=== PATIENT | female | born 1950 | race Caucasian/White ===

== ENCOUNTER 2016-05-08 08:17 | Inpatient (IN) ==
--- NOTE | 2016-05-07 21:31 | Discharge Summary ---
<Ritu Lino Mason - Last Filed: 05/07/16 21:25> Date of Encounter: 05/07/16 - Discharge Diagnosis (1) Arthritis of knee, right Priority: Primary Status: Acute (2) Obesity Priority: Secondary Status: Chronic Qualifiers: Obesity type: unspecified obesity type Obesity severity: unspecified obesity severity Qualified Code(s): E66.9 - Obesity, unspecified (3) Diabetes Priority: Secondary Status: Chronic Qualifiers: Diabetes mellitus type: type 2 Diabetes mellitus complication status: with unspecified complications Diabetes mellitus intermediate frame tender insulin use: unspecified long-term insulin use status Qualified Code(s): E11.8 - Type 2 diabetes mellitus with unspecified complications (4) Hypertension Priority: Secondary Status: Chronic Qualifiers: Hypertension type: essential hypertension Qualified Code(s): I10 - Essential (primary) hypertension (5) Renal insufficiency Priority: Secondary Status: Chronic - Discharge Medications Home Medications: Gabapentin [Neurontin] 600 mg PO HS #0 06/28/15 [History] Hydrochlorothiazide 25 mg PO DAILY #0 06/28/15 [History] Metformin [Glucophage] 500 mg PO BIDWM #0 06/28/15 [History] Furosemide [Lasix] 20 mg PO Q48H #0 10/09/15 [History] Omeprazole [PriLOSEC] 40 mg PO DAILY #30 capsule. 10/09/15 [Rx] Aspirin Enteric Coated [Aspirin EC] 325 mg PO DAILY #21 tablet. 05/07/16 [Rx] OxyCODONE Immed Rel [Roxicodone 5 MG] 5 - 10 mg PO Q6HR PRN #40 tablet 05/07/16 [Rx] Linagliptin [Tradjenta] 5 mg PO DAILY 05/08/16 [History] Allergies/Adverse Reactions: Allergies Penicillins [PCN] Allergy (Verified 05/08/16 09:52) Hives Primary care physician: Noel Gonsalez - Patient Status Disposition: Home, Self-Care Condition: Good - Discharge Instructions Follow Up With: Noel Gonsalez MD [Primary Care Provider] - - Hospital Course Hospital course: Ms. Morales is a 65 year old female - Time Spent with Patient Total time spent providing and/or coordinating discharge services: <Shahram Modi - Last Filed: 05/09/16 06:44> Date of Encounter: 05/09/16 Time of Encounter: 06:42 - Discharge Diagnosis (1) Arthritis of knee, right Priority: Primary Status: Acute (2) Obesity Priority: Secondary Status: Chronic Qualifiers: Obesity type: unspecified obesity type Obesity severity: unspecified obesity severity Qualified Code(s): E66.9 - Obesity, unspecified (3) Diabetes Priority: Secondary Status: Chronic Qualifiers: Diabetes mellitus type: type 2 Diabetes mellitus complication status: with unspecified complications Diabetes mellitus intermediate frame tender insulin use: unspecified intermediate frame tender insulin use status Qualified Code(s): E11.8 - Type 2 diabetes mellitus with unspecified complications (4) Hypertension Priority: Secondary Status: Chronic Qualifiers: Hypertension type: essential hypertension Qualified Code(s): I10 - Essential (primary) hypertension (5) Renal insufficiency Priority: Secondary Status: Chronic (6) Acute blood loss anemia Priority: Primary Status: Acute Primary care physician: Noel Gonsalez - Patient Status Functional capacity at discharge: uses cane/walker Overall status at discharge: patient is progressing back to baseline - Hospital Course Hospital course: Ms. Morales is a 65 year old female Patient with a hematocrit 26.8 postop check hematocrit for discharge otherwise The patient had an uneventful postoperative course. They received antibiotics and physical therapy and were discharged in stable condition. There will follow -up in the office in 2 weeks. Aspirin DVT prophylaxis - Time Spent with Patient Total time spent providing and/or coordinating discharge services:
[2016-05-08] MEDS ORDERED: Clindamycin 900 MG/50 ML 900 MG/50 ML IV.SOLN IVPB ONE (08:31)
[2016-05-08] MEDS ORDERED: Ringers Solution, Lactated 1,000 ML IVC SCH ×2 (08:45→13:44)
--- NOTE | 2016-05-08 09:15 | History & Physical Report ---
Date of Encounter: 05/08/16 Time of Encounter: 09:15 24 Hour HP Update - Instructions Instructions: If the History and Physical is less than 30 days old and was completed prior to A.M. admission and or procedure and has NOT been updated on calendar day of procedure please complete this update prior to performing procedure. - Update Patient reports changes in Medical Condition: No Changes in assessment/condition: No Changes in Medication: No Preop tests/diagnostics Reviewed: Yes Surgery Remains Indicated: Yes Consent for Planned Operative Procedure(s) Verified: Yes - Pre-Operative Checklist Preoperative Checklist Indicated: No Prophylactic Antibiotic Ordered: Yes Is VTE Prophylaxis Indicated?: Yes
--- NOTE | 2016-05-08 09:45 | Anesthesia Evaluation PreOp ---
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 10/09/15 [Rx] Cyclobenzaprine [Flexeril] 10 mg PO TID PRN #9 tablet 02/19/16 [Rx] Naproxen [Naprosyn] 500 mg PO BID PRN #15 tablet 02/19/16 [Rx] Aspirin Enteric Coated [Aspirin EC] 325 mg PO DAILY #21 tablet. 05/07/16 [Rx] OxyCODONE Immed Rel [Roxicodone 5 MG] 5 - 10 mg PO Q6HR PRN #40 tablet 05/07/16 [Rx] Allergies Penicillins [PCN] Allergy (Verified 03/07/16 17:04) Hives - Meds/Allergy Pre-op Review Medications Reviewed: Yes Allergies Reviewed: Yes Beta Blockers on Current Med List: No Anesthesia Results - Labs Laboratory Tests 04/24/16 04/24/16 05/06/16 13:32 13:32 21:08 WBC 9.6 Hgb 11.1 L Hct 33.4 L Plt Count 376 PT 11.3 INR 1.0 APTT 31.9 Sodium Potassium Chloride Carbon Dioxide BUN Creatinine Est GFR ( Amer) Est GFR (Non-Af Amer) BUN/Creatinine Ratio Glucose Est Mean Plasma Glucose 180 Hemoglobin A1c 7.9 H Calcium 05/06/16 21:08 WBC Hgb Hct Plt Count PT INR APTT Sodium 141 Potassium 3.8 Chloride 103 Carbon Dioxide 24 BUN 17 Creatinine 1.14 H Est GFR ( Amer) 58 L Est GFR (Non-Af Amer) 48 L BUN/Creatinine Ratio 15 Glucose 216 H Est Mean Plasma Glucose Hemoglobin A1c Calcium 9.8 - Imaging EKG: report reviewed, image reviewed (SR) Anesthesia Exam Last Vital Signs Temp 98.9 F 05/08/16 08:43 Pulse 90 05/08/16 08:43 Resp 18 05/08/16 08:43 BP 178/79 05/08/16 08:43 Pulse Ox 99 05/08/16 08:43 Weight: 81 kg NPO (# of Hours): >> 8 hrs - HEENT Pupil (Motor): Pupils equal, EOMI Mallampati: III Teeth: Edentulous Oral Opening: Greater than 3 - PEST CONTR[employer] SERVICE SALES AGENT LOC: Oriented - Cardiac Rhythm: Regular Murmur: Systolic (low grade ALISA) - Pulmonary Breath Sounds: bilateral Clear Respiratory Effort: Symmetrical Anesthesia Assess/Plan ASA Score: 3 Modified Keny Scale for Level of Consciousness: Anixous, agitated or restless Anesthetic Plan: General, Regional Monitoring Plan: Standard Monitors Recovery Plan: PACU
[2016-05-08] MEDS ORDERED: *HR* Rocuronium Bromide 50 MG/5 ML VIAL ONE (09:46)
[2016-05-08] MEDS ORDERED: Lidocaine -MPF 2% 2 ML VIAL ONE (09:46)
[2016-05-08] MEDS ORDERED: *HR* FentaNYL (PF) 100 MCG/2 ML VIAL ONE (09:46)
[2016-05-08] MEDS ORDERED: Ketorolac 30 MG/ML VIAL ONE (09:46)
[2016-05-08] MEDS ORDERED: *HR* Midazolam HCl 2 MG/2 ML VIAL ONE (09:46)
[2016-05-08] MEDS ORDERED: *HR* Propofol 200 MG/20 ML VIAL IVP ONE (09:46)
[2016-05-08] MEDS ORDERED: Ondansetron 4 MG/2 ML VIAL ONE (09:46)
[2016-05-08] MEDS ORDERED: ROPIVACAINE HCL/PF 0.5% 30 ML VIAL ONE (10:37)
[2016-05-08] MEDS ORDERED: Bupivacaine/Clonidine Syringe 1 EACH SYRINGE ONE (10:38)
[2016-05-08] MEDS ORDERED: Ondansetron 4 MG/2 ML VIAL IVP PRN (11:27)
[2016-05-08] MEDS ORDERED: Albuterol 2.5 MG/3 ML NEBULIZER IH PRN (11:27)
--- NOTE | 2016-05-08 11:34 | Anesthesia Procedures ---
Date of Encounter: 05/08/16 Time of Encounter: 10:50 Procedures: Anesthesia - Nerve Block Procedure Date: 05/08/16 Time: 10:50 Allergies/Adv Reactions: pcn Pre-op Diagnosis: Right Knee Arthritis Surgical Procedure: Right Knee Arthroplasty Checklist: Correct Patient Identifier, Correct procedure, History checked Correct side: Right Blood Thinner: No Monitor Applied: EKG, BP, Pulse Oximetry Supplemental Oxygen via Nasal Cannula (L/min): 2 Sedation: Versed (mg): 2 Sedation: Fentanyl (mcg): 100 Indication: Post Op Analgesia Pre-op Neuro Deficits: No Block Type: Femoral, Other (ipacks block performedetic ]] using ultrasound and bupivicaine with clonodine. visual spread of Local anest) Catheter placed: No Sterile Technique: No Ultrasound used: Yes Anatomy identified: Yes Visual spread of Local: Yes Neuro Stimulation: Yes Nerve Stimulator Range: 0.2 - 0.4 mA Blood on Needle Aspiration: No Smooth Injection of Local: Yes Pain with Injection of Local: No Prep: Chlorhexadine Needle: 22 x 50 mm Stimuplex, 21 x 100 mm Stimuplex (for ipacks block) Local: Ropivacaine, Other (Decadron 10 mg for fem nerve block only) Volume (cc): 30 ml naropin used for FN Number of Attempts: 1 (each) Complications: None/effective block Vitals: vss
--- NOTE | 2016-05-08 11:57 | Orthopedic Operative Note ---
Date of procedure: 05/08/16 Pre-op diagnosis: Right knee arthritis Post-op diagnosis: same Procedure: Procedure: Right Total knee replacement Estimated blood loss: 200 cc Hardware: Arthrex Femur: 4 Tibia: 3, 5 mm lateral augment PS insert: 14 Patella: 34 Exam Under anesthesia: Varus alignment loss of full extension 10 degrees Procedural Notes: Grade 4 arthritic changes in all 3 compartments Operative procedure: The patient was brought to the operating room and placed on the operating room table. After general anesthesia was administered the operative knee was examined. Findings were noted in the exam under anesthesia. The operative extremity was prepped and draped in sterile surgical fashion. The patient received IV antibiotics prior to skin incision. A standard midline incision was made centered over the patella. The incision was made through the skin and subcutaneous tissue. A medial parapatellar tendon approach was performed. Care was taken to preserve tissue along the medial aspect of the patella. And to protect the patella tendon. The deep MCL was released off the medial tibia. The infra patella fat pad was excised. Knee was brought into flexion. Patient noted to have grade 4 arthritic changes all 3 compartments The entry hole was made for the intramedullary femoral guide. The guide was seated in 6 degrees of valgus. Anterior cut was made followed by the distal cut. The ACL the PCL the medial and the lateral menisci were excised. The tibia was subluxed forward. The entry hole was made for the intramedullary tibial guide. Guide was seated to resect 2 mm off the more abnormal side. The knee was brought into flexion the distal femur was sized to a 4. The femoral guide was seated, the anterior cut was made followed by the posterior condylar cut, followed by the chamfer cuts. The finishing guide was seated the box cut was made and the lug holes were drilled. The tibia was sized to a 3, the tibial tray was seated and prepared with the large drill followed by the fin cutter. Trial reduction revealed full extension no varus valgus instability with the appropriate 14 PS Latricia and a 5 mm lateral augment on the tibia. The patella was everted and cut was made at the level of the insertion of the quadriceps and patella tendon. The patella was sized to a 34 the guide was seated and the lug holes are drilled. Trial reduction revealed excellent patella tracking. All trial components were removed all bony surfaces were irrigated. The tibia was cemented first followed by the femur. The 14 PS Latricia was seated and the knee was brought into full extension. The patella was cemented and held in place with the patellar holding clamp. After the cement had hardened, the knee sat for 2 minutes with a Betadine saline solution. The knee was then irrigated out with 2 L of pulse irrigation. The extensor mechanism was closed with #2 FiberWire suture and #2 PDS suture. The subcutaneous tissue was then irrigated and closed deep with #1 PDS suture superficially with 0 PDS suture and skin was closed with skin jayme. The patient was then placed in a sterile dressing and a postoperative brace extubated and transferred to recovery room in stable condition. Anesthesia: ARMAND Surgeon: Shahram Modi Critical Care Registered Nurse: Ritu Lino Condition: stable Disposition: PACU
[2016-05-08] MEDS: *HR* HYDROmorphone (PF) 1 MG/ML SYRINGE IVP PRN ×2 (12:29→12:36)
--- NOTE | 2016-05-08 13:08 | Anesthesia Evaluation Post Op ---
Date of Encounter: 05/08/16 Time of Encounter: 13:07 - Vital Signs Vital Signs: Vital Signs/O2 Sat, Most Current Temp Pulse Resp BP Pulse Ox 98 F 71 16 132/65 99 05/08/16 12:53 05/08/16 12:53 05/08/16 12:53 05/08/16 12:53 05/08/16 12:53 - Lungs Lungs: Clear Ascult./Percussion - Airway Airway: Non-obstructed - Cardiovascular Regular Rate - Mental Status Mental Status: Asleep with brisk response to light stimulation - Pain Pain Scale: 6 Pain Scale used: Numeric (1 - 10) - Nausea Vomiting Nausea Vomiting: Not Present - Hydration Hydration: NPO, Has not voided - Discharge PostOp Status: Transfer Patient to floor
[2016-05-08 13:26] LABS: Hematocrit 26.8 % (35.3-44.9)
[2016-05-08 13:31] LABS: Hemoglobin 8.8 g/dL (11.5-15.4)
[2016-05-08] MEDS ORDERED: MOM Conc 10 ML UD.LIQ PO PRN (13:44)
[2016-05-08] MEDS ORDERED: Acetaminophen 325 MG TABLET PO PRN (13:44)
[2016-05-08] MEDS ORDERED: Temazepam 15 MG CAPSULE PO PRN (13:44)
[2016-05-08] MEDS ORDERED: *HR* OxyCODONE Immed Rel 5 MG TABLET PO PRN (13:44)
[2016-05-08] MEDS ORDERED: Sennosides 8.6 MG TABLET PO PRN (13:44)
[2016-05-08] MEDS ORDERED: *HR* Dextrose 50 % in Water (Syg) 50 ML SYRINGE IVP PRN (13:44)
[2016-05-08] MEDS ORDERED: D5% in Water 1,000 ML IV PRN (13:44)
[2016-05-08] MEDS ORDERED: Dextrose Gel 15 GM PO PRN ×2 (13:44)
[2016-05-08] MEDS ORDERED: Naloxone 0.4 MG/ML INJ IVP PRN (13:44)
[2016-05-08] MEDS: Ondansetron 4 MG/2 ML VIAL IVP PRN (13:54)
[2016-05-08] MEDS: Insulin LISPRO 300 UNITS/3 ML VIAL SQ SCH ×2 (14:05→17:29)
[2016-05-08] MEDS: Furosemide 20 MG TABLET PO SCH (16:19)
[2016-05-08] MEDS: Clindamycin 900 MG/50 ML 900 MG/50 ML IV.SOLN IVPB SCH (16:19)
[2016-05-08] MEDS: *HR* Metformin 500 MG TABLET PO SCH (17:29)
[2016-05-08] MEDS: *HR* Enoxaparin 30 MG/0.3 ML SYRINGE SQ SCH (17:30)
[2016-05-08] MEDS ORDERED: *HR* Enoxaparin 30 MG/0.3 ML SYRINGE SQ SCH (18:00)
[2016-05-08] MEDS: *HR* OxyCODONE Immed Rel 5 MG TABLET PO PRN (19:38)
[2016-05-08] MEDS: Gabapentin 300 MG CAPSULE PO SCH (21:19)
[2016-05-09] MEDS: *HR* OxyCODONE Immed Rel 5 MG TABLET PO PRN ×5 (01:08→22:15)
[2016-05-09] MEDS: Clindamycin 900 MG/50 ML 900 MG/50 ML IV.SOLN IVPB SCH (01:09)
[2016-05-09] MEDS: *HR* Enoxaparin 30 MG/0.3 ML SYRINGE SQ SCH ×2 (05:17→16:48)
[2016-05-09 07:11] LABS: Hematocrit 23.4 % (35.3-44.9); Hemoglobin 7.9 g/dL (11.5-15.4)
[2016-05-09 07:14] LABS: BUN/Creatinine Ratio 22 (6-26); Blood Urea Nitrogen 19 mg/dL (7-20); Calcium 8.6 mg/dL (8.6-10.8); Carbon Dioxide 24 mEq/L (19-29); Chloride 100 mEq/L (98-109); Glucose 242 mg/dL (70-99); Osmolality,Calculated 290 (280-300); Potassium 3.5 mEq/L (3.5-4.5); Sodium 135 mEq/L (136-145); eGFR For African Americans > 60 (> 60); eGFR For Non-African Americans > 60 (> 60)
[2016-05-09] MEDS: *HR* Metformin 500 MG TABLET PO SCH ×2 (09:36→16:16)
[2016-05-09] MEDS: hydroCHLOROthiazide 25 MG TABLET PO SCH (09:36)
[2016-05-09] MEDS: Ondansetron 4 MG/2 ML VIAL IVP PRN (09:37)
[2016-05-09] MEDS: Insulin LISPRO 300 UNITS/3 ML VIAL SQ SCH ×3 (09:37→16:17)
[2016-05-09] MEDS: (Linagliptin [Tradjenta] 5 MG) PO SCH (09:40)
[2016-05-09] MEDS ORDERED: Furosemide 20 MG/2 ML VIAL IVP ONE ×2 (10:52→20:52)
[2016-05-09] MEDS: 0.9 % Sodium Chloride 250 ML IVC PRN ×2 (14:45→17:44)
[2016-05-09] MEDS: Gabapentin 300 MG CAPSULE PO SCH (20:18)
[2016-05-10] MEDS: *HR* OxyCODONE Immed Rel 5 MG TABLET PO PRN ×3 (02:34→16:12)
[2016-05-10] MEDS: Ondansetron 4 MG/2 ML VIAL IVP PRN ×2 (02:59→10:55)
[2016-05-10 06:04] LABS: Hematocrit 25.2 % (35.3-44.9); Hemoglobin 8.4 g/dL (11.5-15.4)
[2016-05-10 06:16] LABS: BUN/Creatinine Ratio 22 (6-26); Blood Urea Nitrogen 18 mg/dL (7-20); Calcium 8.3 mg/dL (8.6-10.8); Carbon Dioxide 26 mEq/L (19-29); Chloride 97 mEq/L (98-109); Glucose 190 mg/dL (70-99); Osmolality,Calculated 283 (280-300); Potassium 3.1 mEq/L (3.5-4.5); Sodium 133 mEq/L (136-145); eGFR For African Americans > 60 (> 60); eGFR For Non-African Americans > 60 (> 60)
[2016-05-10] MEDS ORDERED: Furosemide 20 MG/2 ML VIAL IVP ONE (06:34)
[2016-05-10] MEDS: *HR* Metformin 500 MG TABLET PO SCH ×2 (07:47→17:22)
[2016-05-10] MEDS: hydroCHLOROthiazide 25 MG TABLET PO SCH (07:48)
[2016-05-10] MEDS: Insulin LISPRO 300 UNITS/3 ML VIAL SQ SCH ×3 (07:48→17:21)
[2016-05-10] MEDS: (Linagliptin [Tradjenta] 5 MG) PO SCH (07:51)
--- NOTE | 2016-05-10 08:33 | Orthopedics Progress Note ---
Date of Encounter: 05/10/16 Time of Encounter: 08:33 - Assessment and Plan (1) Arthritis of knee, right Current Visit: Yes Status: Acute (2) Obesity Current Visit: Yes Status: Chronic Qualifiers: Obesity type: unspecified obesity type Obesity severity: unspecified obesity severity Qualified Code(s): E66.9 - Obesity, unspecified (3) Diabetes Current Visit: No Status: Chronic Qualifiers: Diabetes mellitus type: type 2 Diabetes mellitus complication status: with unspecified complications Diabetes mellitus termination clerk insulin use: unspecified mcc insulin use status Qualified Code(s): E11.8 - Type 2 diabetes mellitus with unspecified complications (4) Hypertension Current Visit: No Status: Chronic Qualifiers: Hypertension type: essential hypertension Qualified Code(s): I10 - Essential (primary) hypertension (5) Renal insufficiency Current Visit: No Status: Chronic (6) Acute blood loss anemia Current Visit: Yes Status: Acute Subjective Interval history: Patient was seen this morning doing well without complaints. Afebrile vital signs stable. Operative extremity: Neurovascularly intact Dressing clean dry and intact Calves nontender Assessment and plan: Continue with postoperative care Patient seen yesterday with acute blood loss anemia postop hematocrit 25 today will give one more unit. Objective Vital signs: Vital Signs Temp Pulse Resp BP Pulse Ox 05/10/16 06:49 98.2 F 78 16 126/61 93 L 05/10/16 04:00 99.0 F 80 17 121/61 92 L 05/10/16 00:00 98.8 F 92 16 145/75 92 L 05/09/16 20:24 97.7 F 82 16 138/72 99 05/09/16 18:03 97.6 F 86 22 137/72 98 05/09/16 17:48 97.8 F 80 22 123/61 97 05/09/16 17:21 97.8 F 89 24 110/56 99 05/09/16 15:00 98.0 F 77 20 121/59 98 05/09/16 14:45 97.9 F 75 22 125/52 99 05/09/16 14:39 98.0 F 87 18 122/58 99 05/09/16 10:45 97.6 F 70 18 121/57 94 L Intake and Output 05/09/16 05/10/16 05/10/16 23:59 07:59 15:59 Intake Total 870 / 870 525 / 525 Output Total 350 / 350 625 / 625 300 / 300 Balance 520 / 520 -100 / -100 -300 / -300 Intake: IV Fluids 50 / 50 0.9 % Sodium Chloride 250 50 / 50 ML @ 25 mls/hr IVC .Q10H PRN Rx#:[id number] Oral 250 / 250 525 / 525 Blood Product 570 / 570 Rbcs Leuko Poor As-1 270 / 270 Unit [id number] Rbcs Leuko Poor As-1 300 / 300 Unit [id number] Output: Urine 350 / 350 625 / 625 300 / 300 Other: Blood Glucose* 197 183 - Labs CBC & BMP: 05/10/16 05:51 05/10/16 05:51 Labs: Abnormal lab results Hgb 8.4 g/dL (11.5-15.4) L 05/10/16 05:51 Hct 25.2 % (35.3-44.9) L 05/10/16 05:51 Sodium 133 mEq/L (136-145) L 05/10/16 05:51 Potassium 3.1 mEq/L (3.5-4.5) L 05/10/16 05:51 Chloride 97 mEq/L (98-109) L 05/10/16 05:51 Glucose 190 mg/dL (70-99) H 05/10/16 05:51 POC Glucose 213 (58-89) H 05/08/16 12:26 Calcium 8.3 mg/dL (8.6-10.8) L 05/10/16 05:51 - VTE Documentation of Mechanical Device: Venous foot pump, device Consult Discharge Plan - Plan Referrals: Shahram Modi MD [Partnered Physician] - 06/06/16 7:35 am Ritu Lino, PAC [Physician Display Department Manager] - 05/18/16 9:15 am Noel Gonsalez MD [Primary Care Provider] -
[2016-05-10] MEDS ORDERED: 0.9 % Sodium Chloride 250 ML ONE (10:05)
--- NOTE | 2016-05-10 10:26 | Orthopedics Progress Note ---
Date of Encounter: 05/09/16 Time of Encounter: 06:00 - Assessment and Plan (1) Arthritis of knee, right Current Visit: Yes Status: Acute (2) Obesity Current Visit: Yes Status: Chronic Qualifiers: Obesity type: unspecified obesity type Obesity severity: unspecified obesity severity Qualified Code(s): E66.9 - Obesity, unspecified (3) Diabetes Current Visit: No Status: Chronic Qualifiers: Diabetes mellitus type: type 2 Diabetes mellitus complication status: with unspecified complications Diabetes mellitus intermodal dispatcher insulin use: unspecified alf insulin use status Qualified Code(s): E11.8 - Type 2 diabetes mellitus with unspecified complications (4) Hypertension Current Visit: No Status: Chronic Qualifiers: Hypertension type: essential hypertension Qualified Code(s): I10 - Essential (primary) hypertension (5) Renal insufficiency Current Visit: No Status: Chronic (6) Acute blood loss anemia Current Visit: Yes Status: Acute Subjective Interval history: Patient was seen this morning doing well without complaints. Afebrile vital signs stable. Operative extremity: Neurovascularly intact Dressing clean dry and intact Calves nontender Assessment and plan: Continue with postoperative care Hematocrit 23 transfuse 2 units packed red blood cells for acute blood loss anemia Objective Vital signs: Vital Signs Temp Pulse Resp BP Pulse Ox 05/10/16 06:49 98.2 F 78 16 126/61 93 L 05/10/16 04:00 99.0 F 80 17 121/61 92 L 05/10/16 00:00 98.8 F 92 16 145/75 92 L 05/09/16 20:24 97.7 F 82 16 138/72 99 05/09/16 18:03 97.6 F 86 22 137/72 98 05/09/16 17:48 97.8 F 80 22 123/61 97 05/09/16 17:21 97.8 F 89 24 110/56 99 05/09/16 15:00 98.0 F 77 20 121/59 98 05/09/16 14:45 97.9 F 75 22 125/52 99 05/09/16 14:39 98.0 F 87 18 122/58 99 05/09/16 10:45 97.6 F 70 18 121/57 94 L Intake and Output 05/09/16 05/10/16 05/10/16 23:59 07:59 15:59 Intake Total 870 / 870 525 / 525 100 / 100 Output Total 350 / 350 625 / 625 300 / 300 Balance 520 / 520 -100 / -100 -200 / -200 Intake: IV Fluids 50 / 50 0.9 % Sodium Chloride 250 50 / 50 ML @ 25 mls/hr IVC .Q10H PRN Rx#:[id number] Oral 250 / 250 525 / 525 100 / 100 Blood Product 570 / 570 Rbcs Leuko Poor As-1 270 / 270 Unit [id number] Rbcs Leuko Poor As-1 300 / 300 Unit [id number] Output: Urine 350 / 350 625 / 625 300 / 300 Other: Meal Breakfast Percent of Meal Consumed 50% Blood Glucose* 197 183 - Labs CBC & BMP: 05/10/16 05:51 05/10/16 05:51 Labs: Abnormal lab results Hgb 8.4 g/dL (11.5-15.4) L 05/10/16 05:51 Hct 25.2 % (35.3-44.9) L 05/10/16 05:51 Sodium 133 mEq/L (136-145) L 05/10/16 05:51 Potassium 3.1 mEq/L (3.5-4.5) L 05/10/16 05:51 Chloride 97 mEq/L (98-109) L 05/10/16 05:51 Glucose 190 mg/dL (70-99) H 05/10/16 05:51 POC Glucose 213 (58-89) H 05/08/16 12:26 Calcium 8.3 mg/dL (8.6-10.8) L 05/10/16 05:51 - VTE Documentation of Mechanical Device: Venous foot pump, device Consult Discharge Plan - Plan Referrals: Shahram Modi MD [Partnered Physician] - 06/06/16 7:35 am Ritu Lino, PAC [Physician Insole Rounder] - 05/18/16 9:15 am Noel Gonsalez MD [Primary Care Provider] -
[2016-05-10] MEDS: *HR* HYDROmorphone (PF) 1 MG/ML SYRINGE IVP PRN ×2 (10:36→19:20)
[2016-05-10] MEDS: Aspirin Enteric Coated 325 MG Tablet PO SCH ×2 (14:53→21:48)
[2016-05-10] MEDS: Furosemide 20 MG TABLET PO SCH (14:53)
[2016-05-10] MEDS: Gabapentin 300 MG CAPSULE PO SCH (21:48)
[2016-05-11] MEDS: *HR* Enoxaparin 30 MG/0.3 ML SYRINGE SQ SCH (06:05)
[2016-05-11] MEDS: hydroCHLOROthiazide 25 MG TABLET PO SCH (07:34)
[2016-05-11] MEDS: Insulin LISPRO 300 UNITS/3 ML VIAL SQ SCH ×2 (07:34→12:38)
[2016-05-11] MEDS: *HR* Metformin 500 MG TABLET PO SCH (07:34)
[2016-05-11] MEDS: (Linagliptin [Tradjenta] 5 MG) PO SCH (07:35)
--- NOTE | 2016-05-11 08:08 | Orthopedics Progress Note ---
Date of Encounter: 05/11/16 Time of Encounter: 08:08 - Assessment and Plan (1) Arthritis of knee, right Current Visit: Yes Status: Acute (2) Obesity Current Visit: Yes Status: Chronic Qualifiers: Obesity type: unspecified obesity type Obesity severity: unspecified obesity severity Qualified Code(s): E66.9 - Obesity, unspecified (3) Diabetes Current Visit: No Status: Chronic Qualifiers: Diabetes mellitus type: type 2 Diabetes mellitus complication status: with unspecified complications Diabetes mellitus terminal carman insulin use: unspecified half-way insulin use status Qualified Code(s): E11.8 - Type 2 diabetes mellitus with unspecified complications (4) Hypertension Current Visit: No Status: Chronic Qualifiers: Hypertension type: essential hypertension Qualified Code(s): I10 - Essential (primary) hypertension (5) Renal insufficiency Current Visit: No Status: Chronic (6) Acute blood loss anemia Current Visit: Yes Status: Acute Subjective Interval history: Patient was seen this morning doing well without complaints. Afebrile vital signs stable. Operative extremity: Neurovascularly intact Dressing clean dry and intact Calves nontender Assessment and plan: Continue with postoperative care dc today Objective Vital signs: Vital Signs Temp Pulse Resp BP Pulse Ox 05/11/16 07:46 96 05/11/16 07:00 99.4 F 83 16 126/68 95 05/11/16 06:55 98.9 F 87 18 147/68 96 05/11/16 00:00 99.5 F 97 16 152/71 94 L 05/10/16 20:00 99.2 F 83 17 126/66 96 05/10/16 14:50 98.5 F 92 16 149/71 93 L 05/10/16 13:40 98.6 F 90 17 135/69 95 05/10/16 11:09 98.6 F 79 15 125/66 97 05/10/16 10:54 98.1 F 81 17 136/67 95 05/10/16 10:33 98.7 F 85 18 130/69 93 L Intake and Output 05/10/16 05/11/16 05/11/16 23:59 07:59 15:59 Intake Total 250 / 250 200 / 200 Output Total 225 / 225 300 / 300 Balance 25 / 25 -100 / -100 Intake: Oral 250 / 250 200 / 200 Output: Urine 225 / 225 300 / 300 Other: Blood Glucose* 159 177 - Labs CBC & BMP: 05/10/16 05:51 05/10/16 05:51 Labs: Abnormal lab results Hgb 8.4 g/dL (11.5-15.4) L 05/10/16 05:51 Hct 25.2 % (35.3-44.9) L 05/10/16 05:51 Sodium 133 mEq/L (136-145) L 05/10/16 05:51 Potassium 3.1 mEq/L (3.5-4.5) L 05/10/16 05:51 Chloride 97 mEq/L (98-109) L 05/10/16 05:51 Glucose 190 mg/dL (70-99) H 05/10/16 05:51 POC Glucose 213 (58-89) H 05/08/16 12:26 Calcium 8.3 mg/dL (8.6-10.8) L 05/10/16 05:51 - VTE Documentation of Mechanical Device: Venous foot pump, device Consult Discharge Plan - Plan Referrals: Shahram Modi MD [Partnered Physician] - 06/06/16 7:35 am Ritu Lino PAC [Physician Retail Manager In Training] - 05/18/16 9:15 am Noel Gonsalez MD [Primary Care Provider] -
[2016-05-11 10:54] LABS: Hematocrit 28.9 % (35.3-44.9); Hemoglobin 9.8 g/dL (11.5-15.4)
[2016-05-11] MEDS: *HR* OxyCODONE Immed Rel 5 MG TABLET PO PRN (11:10)
[2016-05-11 11:48] VITALS: BP 132/59
== END 2016-05-11 13:05 | disposition home or self-care (01) | DRG 470 ==
LOC: SAMDAY 08:17 → 3NENU 13:41
PROVIDERS: ADMIT Orthopaedic Surgery; ATTEND Orthopaedic Surgery

== ENCOUNTER 2021-08-31 10:55 | Inpatient (IN) ==
[2021-08-31 13:25] LABS: Basophils # 0.1 K/mcL (0.0-0.2); Basophils % 0.7 %; Eosinophils # 0.8 K/mcL (0.0-0.6); Eosinophils % 6.8 %; Hematocrit 27.4 % (35.3-44.9); Hemoglobin 8.4 g/dL (11.5-15.4); Immature Granulocytes % 0.4 % (0-4); Lymphocytes # 3.1 K/mcL (0.6-4.6); Mean Corpuscular HGB Conc 30.7 g/dL (31.6-35.5); Mean Corpuscular Hemoglobin 28.2 pg (28.0-33.3); Mean Corpuscular Volume 91.9 fL (83.0-100.0); Mean Platelet Volume 8.7 fL (9.4-12.4); Monocytes # 0.8 K/mcL (0.0-1.3); Monocytes % 7.1 %; Neutrophils # 6.2 K/mcL (1.6-8.9); Platelet Count 464 K/mcL (140-400); Red Blood Count 2.98 M/mcL (3.82-4.97); Red Cell Distribution Width 15.9 % (11.5-14.5)
[2021-08-31 13:41] LABS: BUN/Creatinine Ratio 10 (6-26); Blood Urea Nitrogen 13 mg/dL (8-23); Carbon Dioxide 27 mEq/L (23-29); Chloride 100 mEq/L (98-107); Glucose 68 mg/dL (70-105); Osmolality,Calculated 282 (280-300); Potassium 3.1 mEq/L (3.5-5.1); Sodium 137 mEq/L (136-145); eGFR For African Americans 50 (> 60); eGFR For Non-African Americans 41 (> 60)
[2021-08-31] MEDS ORDERED: Potassium Effervescent 25 MEQ TABLET.EFF PO ONE (13:46)
[2021-08-31] MEDS ORDERED: Furosemide 20 MG/2 ML VIAL IVP ONE ×2 (14:38→17:13)
[2021-08-31] MEDS ORDERED: Ondansetron ODT 4 MG TAB.RAPDIS SL PRN (15:41)
[2021-08-31] MEDS ORDERED: Naloxone 0.4 MG/ML INJ IVP PRN (15:41)
[2021-08-31] MEDS ORDERED: Perflutren Lipid Microsphere 1.3 ML in 0.9 % Sodium Chloride 8.7 ML IVP PRN (15:49)
[2021-08-31] MEDS ORDERED: D5% in Water 1,000 ML IVC PRN (15:55)
[2021-08-31] MEDS ORDERED: *HR* Dextrose 50 % in Water (Syg) 50 ML SYRINGE IVP PRN (15:55)
[2021-08-31] MEDS ORDERED: Dextrose Gel 15 GM/37.5 ML TUBE PO PRN ×2 (15:55)
[2021-08-31 17:34] LABS: Troponin I < 0.03 ng/mL (< 0.04)
[2021-08-31] MEDS ORDERED: Iopamidol - 370 500 ML MLS IVP ONE (17:58)
[2021-08-31] MEDS: Insulin LISPRO 300 UNITS/3 ML VIAL SUBQ SCH ×2 (19:53)
[2021-08-31] MEDS: Furosemide 20 MG/2 ML VIAL IVP SCH (20:35)
[2021-09-01] MEDS: Gabapentin 300 MG CAPSULE PO SCH ×2 (00:04→21:27)
[2021-09-01 00:59] LABS: Influenza A PCR Negative (Negative); Influenza B PCR Negative (Negative); Resp. Syncytial Virus PCR Negative (Negative)
[2021-09-01 01:02] LABS: SARS-CoV-2 by PCR (In House) Negative (Negative)
[2021-09-01] MEDS: Acetaminophen 325 MG TABLET PO PRN (03:18)
[2021-09-01] MEDS ORDERED: *HR* OxyCODONE Immed Rel 5 MG TABLET PO ONE (04:56)
[2021-09-01 05:41] LABS: Basophils # 0.1 K/mcL (0.0-0.2); Basophils % 0.8 %; Eosinophils # 0.3 K/mcL (0.0-0.6); Eosinophils % 3.6 %; Hematocrit 25.6 % (35.3-44.9); Immature Granulocytes % 0.3 % (0-4); Lymphocytes # 1.9 K/mcL (0.6-4.6); Lymphocytes % 21.2 %; Mean Corpuscular HGB Conc 31.3 g/dL (31.6-35.5); Mean Corpuscular Hemoglobin 28.7 pg (28.0-33.3); Mean Corpuscular Volume 91.8 fL (83.0-100.0); Mean Platelet Volume 8.8 fL (9.4-12.4); Monocytes # 0.7 K/mcL (0.0-1.3); Monocytes % 7.5 %; Neutrophils # 5.8 K/mcL (1.6-8.9); Platelet Count 397 K/mcL (140-400); Red Blood Count 2.79 M/mcL (3.82-4.97); Red Cell Distribution Width 15.7 % (11.5-14.5); Segmented Neutrophils % 66.6 %; White Blood Count 8.7 K/mcL (4.3-11.1)
[2021-09-01 07:17] LABS: Troponin I 0.39 ng/mL (< 0.04)
[2021-09-01 07:30] LABS: Thyroid Stimulating Hormone 11.603 mcIU/mL (0.340-5.600)
[2021-09-01 07:34] LABS: Albumin 3.3 g/dL (3.5-5.7); Bilirubin,Total 0.5 mg/dL (0.3-1.0); Calcium 8.7 mg/dL (8.6-10.3); Chol/HDL Ratio 5.6 (0-4.9); Globulin 3.2 g/dL (2.4-3.5); Magnesium 1.7 mg/dL (1.6-2.6); Potassium 3.5 mEq/L (3.5-5.1); Total Protein 6.5 g/dL (6.4-8.9)
[2021-09-01] MEDS: Insulin LISPRO 300 UNITS/3 ML VIAL SUBQ SCH ×4 (08:26→21:28)
[2021-09-01] MEDS: Furosemide 20 MG/2 ML VIAL IVP SCH ×2 (08:27→21:29)
[2021-09-01] MEDS ORDERED: *HR* Heparin 5,000 UNIT/ML VIAL IVP ONE (08:40)
[2021-09-01] MEDS ORDERED: *HR* Heparin 5,000 UNIT/ML VIAL IVP PRN ×2 (08:40)
[2021-09-01] MEDS: Heparin 25,000UNIT/250ML 1/2NS 25,000 UNIT/250 ML IV.SOLN IVC SCH (09:57)
[2021-09-01 10:04] LABS: Hematocrit 26.8 % (35.3-44.9); Hemoglobin 8.4 g/dL (11.5-15.4); Mean Corpuscular HGB Conc 31.3 g/dL (31.6-35.5); Mean Corpuscular Hemoglobin 29.1 pg (28.0-33.3); Mean Corpuscular Volume 92.7 fL (83.0-100.0); Mean Platelet Volume 8.5 fL (9.4-12.4); Platelet Count 410 K/mcL (140-400); Red Blood Count 2.89 M/mcL (3.82-4.97); Red Cell Distribution Width 15.8 % (11.5-14.5); White Blood Count 9.8 K/mcL (4.3-11.1)
[2021-09-01 10:16] LABS: Heparin anti-factor XA UFH < 0.04 IU/mL (0.30-0.70)
[2021-09-01 10:17] LABS: INR 1.2; Prothrombin Time 13.8 Seconds (9.4-12.1)
[2021-09-01 16:50] LABS: % Iron Saturation 14 % (15-50); Iron 42 mcg/dL (50-170); Transferrin 219 mg/dL (203-362)
[2021-09-01] MEDS: Vancomycin 1,250 MG/262.5 ML IV.SOLN IVPB SCH (16:51)
[2021-09-01 17:08] LABS: Ferritin 50 ng/mL (10-120)
[2021-09-01] MEDS: Ibuprofen 400 MG TABLET PO PRN (18:05)
[2021-09-01 18:51] LABS: Folate > 22.3 ng/mL (3.0-16.0); Vitamin B12 774 pg/mL (250-1100)
[2021-09-01] MEDS: *HR* OxyCODONE Immed Rel 5 MG TABLET PO PRN (23:56)
[2021-09-02 03:53] LABS: Basophils # 0.1 K/mcL (0.0-0.2); Eosinophils # 0.7 K/mcL (0.0-0.6); Eosinophils % 7.1 %; Hematocrit 24.4 % (35.3-44.9); Hemoglobin 7.5 g/dL (11.5-15.4); Immature Granulocytes % 0.3 % (0-4); Lymphocytes # 2.3 K/mcL (0.6-4.6); Lymphocytes % 24.3 %; Mean Corpuscular HGB Conc 30.7 g/dL (31.6-35.5); Mean Corpuscular Hemoglobin 28.3 pg (28.0-33.3); Mean Corpuscular Volume 92.1 fL (83.0-100.0); Mean Platelet Volume 8.8 fL (9.4-12.4); Monocytes # 0.6 K/mcL (0.0-1.3); Monocytes % 6.9 %; Neutrophils # 5.6 K/mcL (1.6-8.9); Platelet Count 378 K/mcL (140-400); Red Blood Count 2.65 M/mcL (3.82-4.97); Red Cell Distribution Width 15.9 % (11.5-14.5); Segmented Neutrophils % 60.4 %; White Blood Count 9.3 K/mcL (4.3-11.1)
[2021-09-02 04:14] LABS: Albumin 3.3 g/dL (3.5-5.7); Bilirubin,Total 0.4 mg/dL (0.3-1.0); Calcium 8.5 mg/dL (8.6-10.3); Globulin 3.2 g/dL (2.4-3.5); Potassium 3.2 mEq/L (3.5-5.1); Total Protein 6.5 g/dL (6.4-8.9)
[2021-09-02] MEDS: Heparin 25,000UNIT/250ML 1/2NS 25,000 UNIT/250 ML IV.SOLN IVC SCH ×2 (04:47→21:34)
[2021-09-02] MEDS: Furosemide 20 MG/2 ML VIAL IVP SCH ×2 (07:52→20:02)
[2021-09-02] MEDS: Insulin LISPRO 300 UNITS/3 ML VIAL SUBQ SCH ×4 (07:52→20:02)
[2021-09-02] MEDS: Vancomycin 1,250 MG/262.5 ML IV.SOLN IVPB SCH (12:49)
[2021-09-02] MEDS: *HR* OxyCODONE Immed Rel 5 MG TABLET PO PRN (16:57)
[2021-09-02] MEDS: carvediloL 6.25 MG TABLET PO SCH (16:58)
[2021-09-02] MEDS: Acetaminophen 325 MG TABLET PO PRN (16:58)
[2021-09-02] MEDS: Gabapentin 300 MG CAPSULE PO SCH (20:02)
[2021-09-03 02:30] LABS: Basophils # 0.1 K/mcL (0.0-0.2); Basophils % 0.7 %; Eosinophils % 10.8 %; Hematocrit 23.6 % (35.3-44.9); Hemoglobin 7.4 g/dL (11.5-15.4); Immature Granulocytes % 0.4 % (0-4); Lymphocytes # 2.4 K/mcL (0.6-4.6); Mean Corpuscular HGB Conc 31.4 g/dL (31.6-35.5); Mean Corpuscular Volume 92.5 fL (83.0-100.0); Mean Platelet Volume 8.8 fL (9.4-12.4); Monocytes # 0.6 K/mcL (0.0-1.3); Monocytes % 6.5 %; Neutrophils # 5.3 K/mcL (1.6-8.9); Platelet Count 346 K/mcL (140-400); Red Blood Count 2.55 M/mcL (3.82-4.97); Red Cell Distribution Width 15.9 % (11.5-14.5); Segmented Neutrophils % 56.6 %; White Blood Count 9.4 K/mcL (4.3-11.1)
[2021-09-03 03:21] LABS: Albumin 3.2 g/dL (3.5-5.7); Albumin/Globulin Ratio 0.9 (1.1-2.2); Bilirubin,Total 0.4 mg/dL (0.3-1.0); Calcium 8.3 mg/dL (8.6-10.3); Globulin 3.5 g/dL (2.4-3.5); Potassium 3.5 mEq/L (3.5-5.1); Total Protein 6.7 g/dL (6.4-8.9)
[2021-09-03] MEDS: carvediloL 6.25 MG TABLET PO SCH ×2 (08:51→17:44)
[2021-09-03] MEDS: Insulin LISPRO 300 UNITS/3 ML VIAL SUBQ SCH ×4 (08:52→22:11)
[2021-09-03] MEDS: Furosemide 20 MG/2 ML VIAL IVP SCH (08:54)
[2021-09-03] MEDS: *HR* OxyCODONE Immed Rel 5 MG TABLET PO PRN (12:04)
[2021-09-03] MEDS: Vancomycin 1,250 MG/262.5 ML IV.SOLN IVPB SCH (14:35)
[2021-09-03] MEDS: *HR* Heparin 5,000 UNIT/ML VIAL SQ SCH (17:43)
[2021-09-03] MEDS: Gabapentin 300 MG CAPSULE PO SCH (22:16)
[2021-09-04] MEDS: *HR* OxyCODONE Immed Rel 5 MG TABLET PO PRN (05:17)
[2021-09-04] MEDS: *HR* Heparin 5,000 UNIT/ML VIAL SQ SCH ×2 (05:17→17:07)
[2021-09-04 05:23] LABS: Basophils # 0.1 K/mcL (0.0-0.2); Eosinophils # 1.1 K/mcL (0.0-0.6); Hematocrit 23.8 % (35.3-44.9); Hemoglobin 7.2 g/dL (11.5-15.4); Immature Granulocytes % 0.4 % (0-4); Lymphocytes # 2.1 K/mcL (0.6-4.6); Lymphocytes % 21.7 %; Mean Corpuscular HGB Conc 30.3 g/dL (31.6-35.5); Mean Corpuscular Hemoglobin 28.3 pg (28.0-33.3); Mean Corpuscular Volume 93.7 fL (83.0-100.0); Mean Platelet Volume 8.5 fL (9.4-12.4); Monocytes # 0.8 K/mcL (0.0-1.3); Monocytes % 8.4 %; Neutrophils # 5.5 K/mcL (1.6-8.9); Platelet Count 317 K/mcL (140-400); Red Blood Count 2.54 M/mcL (3.82-4.97); Segmented Neutrophils % 57.5 %; White Blood Count 9.5 K/mcL (4.3-11.1)
[2021-09-04 05:44] LABS: Albumin 3.4 g/dL (3.5-5.7); Bilirubin,Total 0.4 mg/dL (0.3-1.0); Calcium 8.4 mg/dL (8.6-10.3); Globulin 3.3 g/dL (2.4-3.5); Potassium 3.7 mEq/L (3.5-5.1); Total Protein 6.7 g/dL (6.4-8.9)
[2021-09-04] MEDS: carvediloL 6.25 MG TABLET PO SCH ×2 (07:38→17:07)
[2021-09-04] MEDS: Insulin LISPRO 300 UNITS/3 ML VIAL SUBQ SCH ×4 (07:44→20:13)
[2021-09-04] MEDS: Acetaminophen 325 MG TABLET PO PRN (09:21)
[2021-09-04] MEDS: Vancomycin 1,250 MG/262.5 ML IV.SOLN IVPB SCH (15:15)
[2021-09-04] MEDS: Gabapentin 300 MG CAPSULE PO SCH (20:13)
[2021-09-05] MEDS: *HR* Heparin 5,000 UNIT/ML VIAL SQ SCH ×2 (06:52→17:34)
[2021-09-05 08:21] LABS: Basophils # 0.1 K/mcL (0.0-0.2); Basophils % 0.7 %; Eosinophils # 0.9 K/mcL (0.0-0.6); Eosinophils % 8.8 %; Hematocrit 27.1 % (35.3-44.9); Hemoglobin 8.2 g/dL (11.5-15.4); Immature Granulocytes % 0.4 % (0-4); Lymphocytes # 1.6 K/mcL (0.6-4.6); Lymphocytes % 15.9 %; Mean Corpuscular HGB Conc 30.3 g/dL (31.6-35.5); Mean Corpuscular Hemoglobin 28.8 pg (28.0-33.3); Mean Corpuscular Volume 95.1 fL (83.0-100.0); Mean Platelet Volume 8.7 fL (9.4-12.4); Monocytes # 0.7 K/mcL (0.0-1.3); Monocytes % 7.4 %; Neutrophils # 6.6 K/mcL (1.6-8.9); Platelet Count 316 K/mcL (140-400); Red Blood Count 2.85 M/mcL (3.82-4.97); Segmented Neutrophils % 66.8 %; White Blood Count 9.9 K/mcL (4.3-11.1)
[2021-09-05 08:41] LABS: Albumin 3.6 g/dL (3.5-5.7); Bilirubin,Total 0.5 mg/dL (0.3-1.0); Calcium 9.1 mg/dL (8.6-10.3); Globulin 3.6 g/dL (2.4-3.5); Potassium 3.9 mEq/L (3.5-5.1); Total Protein 7.2 g/dL (6.4-8.9)
[2021-09-05] MEDS: Insulin LISPRO 300 UNITS/3 ML VIAL SUBQ SCH ×4 (09:16→22:34)
[2021-09-05] MEDS: carvediloL 6.25 MG TABLET PO SCH ×2 (09:18→17:33)
[2021-09-05 09:35] LABS: Kappa Qnt Free Light Chains 42.99 mg/L (3.30-19.40); Lambda Qnt Free Light Chains 67.28 mg/L (5.71-26.30)
[2021-09-05] MEDS ORDERED: carvediloL 6.25 MG TABLET PO ONE (10:01)
[2021-09-05] MEDS ORDERED: polyethylene glycoL 3350 17 GM POWD.PACK PO SCH (11:00)
[2021-09-05] MEDS: Aspirin Enteric Coated 81 MG Tablet PO SCH (11:36)
[2021-09-05] MEDS: Vancomycin 1,250 MG/262.5 ML IV.SOLN IVPB SCH (14:24)
[2021-09-05] MEDS ORDERED: SODIUM CHLORIDE/NAHCO3/KCL/PEG 4,000 ML SOLN.RECON PO ONE (17:00)
[2021-09-05] MEDS: *HR* OxyCODONE Immed Rel 5 MG TABLET PO PRN (22:32)
[2021-09-05] MEDS: Gabapentin 300 MG CAPSULE PO SCH (22:33)
[2021-09-06] MEDS: *HR* Heparin 5,000 UNIT/ML VIAL SQ SCH ×2 (06:03→17:09)
[2021-09-06] MEDS: carvediloL 6.25 MG TABLET PO SCH ×2 (08:27→17:07)
[2021-09-06] MEDS: Aspirin Enteric Coated 81 MG Tablet PO SCH (08:27)
[2021-09-06] MEDS: Insulin LISPRO 300 UNITS/3 ML VIAL SUBQ SCH ×4 (08:30→20:11)
[2021-09-06 12:40] LABS: Alanine Aminotransferase 9 Units/L (7-52); Albumin 3.4 g/dL (3.5-5.7); Alkaline Phosphatase 70 Units/L (34-104); Aspartate Amino Transferase 15 Units/L (13-39); BUN/Creatinine Ratio 17 (6-26); Bilirubin,Total 0.5 mg/dL (0.3-1.0); Blood Urea Nitrogen 15 mg/dL (8-23); Calcium 8.9 mg/dL (8.6-10.3); Carbon Dioxide 26 mEq/L (23-29); Chloride 105 mEq/L (98-107); Globulin 3.3 g/dL (2.4-3.5); Glucose 137 mg/dL (70-105); Osmolality,Calculated 289 (280-300); Potassium 4.2 mEq/L (3.5-5.1); Sodium 138 mEq/L (136-145); Total Protein 6.7 g/dL (6.4-8.9); eGFR For African Americans > 60 (> 60); eGFR For Non-African Americans > 60 (> 60)
[2021-09-06 14:22] LABS: Basophils # 0.1 K/mcL (0.0-0.2); Basophils % 0.9 %; Eosinophils # 0.7 K/mcL (0.0-0.6); Eosinophils % 9.2 %; Hematocrit 25.3 % (35.3-44.9); Hemoglobin 7.7 g/dL (11.5-15.4); Immature Granulocytes % 0.6 % (0-4); Immature Platelets 1.8 % (1.1-6.1); Lymphocytes # 1.2 K/mcL (0.6-4.6); Lymphocytes % 14.9 %; Mean Corpuscular HGB Conc 30.4 g/dL (31.6-35.5); Mean Corpuscular Hemoglobin 28.1 pg (28.0-33.3); Mean Corpuscular Volume 92.3 fL (83.0-100.0); Mean Platelet Volume 9.1 fL (9.4-12.4); Monocytes # 0.6 K/mcL (0.0-1.3); Monocytes % 7.1 %; Neutrophils # 5.4 K/mcL (1.6-8.9); Nucleated Red Blood Cells 0.2 /100 WBC (0); Platelet Count 310 K/mcL (140-400); Red Blood Count 2.74 M/mcL (3.82-4.97); Segmented Neutrophils % 67.3 %
[2021-09-06] MEDS: *HR* OxyCODONE Immed Rel 5 MG TABLET PO PRN (14:34)
[2021-09-06] MEDS: Vancomycin 1,250 MG/262.5 ML IV.SOLN IVPB SCH (14:37)
[2021-09-06] MEDS: Gabapentin 300 MG CAPSULE PO SCH (20:09)
[2021-09-07 03:05] LABS: Alpha 2 Globulin (PEP) 0.95 g/dL (0.48-1.05); Beta Globulin (PEP) 0.85 g/dL (0.48-1.10)
[2021-09-07 06:49] LABS: Immunoglobulin A 377 mg/dL (68-408); Immunoglobulin G 1522 mg/dL (768-1632); Immunoglobulin M 161 mg/dL (35-263)
[2021-09-07] MEDS: *HR* Heparin 5,000 UNIT/ML VIAL SQ SCH ×2 (07:00→17:09)
[2021-09-07 07:45] LABS: IFE Reflexed IFE Done
[2021-09-07] MEDS: Insulin LISPRO 300 UNITS/3 ML VIAL SUBQ SCH ×4 (08:56→20:35)
[2021-09-07] MEDS: carvediloL 6.25 MG TABLET PO SCH ×2 (08:57→17:09)
[2021-09-07] MEDS: Aspirin Enteric Coated 81 MG Tablet PO SCH (08:58)
[2021-09-07] MEDS: *HR* OxyCODONE Immed Rel 5 MG TABLET PO PRN (10:45)
[2021-09-07 11:41] LABS: Alanine Aminotransferase 11 Units/L (7-52); Albumin 4.1 g/dL (3.5-5.7); Alkaline Phosphatase 84 Units/L (34-104); Aspartate Amino Transferase 15 Units/L (13-39); BUN/Creatinine Ratio 14 (6-26); Bilirubin,Total 0.6 mg/dL (0.3-1.0); Blood Urea Nitrogen 13 mg/dL (8-23); Calcium 9.5 mg/dL (8.6-10.3); Carbon Dioxide 26 mEq/L (23-29); Chloride 105 mEq/L (98-107); Globulin 4.1 g/dL (2.4-3.5); Glucose 158 mg/dL (70-105); Osmolality,Calculated 289 (280-300); Sodium 138 mEq/L (136-145); Total Protein 8.2 g/dL (6.4-8.9); eGFR For African Americans > 60 (> 60); eGFR For Non-African Americans 57 (> 60)
[2021-09-07 11:47] LABS: Basophils # 0.1 K/mcL (0.0-0.2); Basophils % 0.9 %; Eosinophils # 0.7 K/mcL (0.0-0.6); Eosinophils % 8.2 %; Hematocrit 31.2 % (35.3-44.9); Immature Granulocytes % 0.5 % (0-4); Lymphocytes # 1.3 K/mcL (0.6-4.6); Mean Corpuscular HGB Conc 30.1 g/dL (31.6-35.5); Mean Corpuscular Hemoglobin 28.3 pg (28.0-33.3); Monocytes # 0.6 K/mcL (0.0-1.3); Monocytes % 7.3 %; Neutrophils # 5.3 K/mcL (1.6-8.9); Platelet Count 321 K/mcL (140-400); Red Blood Count 3.32 M/mcL (3.82-4.97); Segmented Neutrophils % 67.1 %; White Blood Count 7.9 K/mcL (4.3-11.1)
[2021-09-07 11:48] LABS: Hemoglobin 9.4 g/dL (11.5-15.4)
[2021-09-07] MEDS: Vancomycin 1,250 MG/262.5 ML IV.SOLN IVPB SCH (14:55)
[2021-09-07] MEDS ORDERED: Lidocaine -MPF 2% 2 ML VIAL ONE (15:31)
[2021-09-07] MEDS: Gabapentin 300 MG CAPSULE PO SCH (20:32)
[2021-09-08] MEDS: *HR* Heparin 5,000 UNIT/ML VIAL SQ SCH ×2 (06:38→17:08)
[2021-09-08] MEDS: Insulin LISPRO 300 UNITS/3 ML VIAL SUBQ SCH ×4 (07:59→20:55)
[2021-09-08] MEDS: Aspirin Enteric Coated 81 MG Tablet PO SCH (08:03)
[2021-09-08] MEDS: carvediloL 6.25 MG TABLET PO SCH ×2 (08:03→17:08)
[2021-09-08] MEDS: *HR* OxyCODONE Immed Rel 5 MG TABLET PO PRN ×2 (08:57→21:05)
[2021-09-08 10:08] LABS: Basophils # 0.1 K/mcL (0.0-0.2); Basophils % 0.9 %; Eosinophils # 0.6 K/mcL (0.0-0.6); Eosinophils % 7.7 %; Hematocrit 26.7 % (35.3-44.9); Hemoglobin 8.1 g/dL (11.5-15.4); Immature Granulocytes % 0.4 % (0-4); Lymphocytes # 1.7 K/mcL (0.6-4.6); Lymphocytes % 22.3 %; Mean Corpuscular HGB Conc 30.3 g/dL (31.6-35.5); Mean Corpuscular Hemoglobin 28.6 pg (28.0-33.3); Mean Corpuscular Volume 94.3 fL (83.0-100.0); Monocytes # 0.6 K/mcL (0.0-1.3); Monocytes % 8.1 %; Neutrophils # 4.5 K/mcL (1.6-8.9); Platelet Count 282 K/mcL (140-400); Red Blood Count 2.83 M/mcL (3.82-4.97); Red Cell Distribution Width 16.4 % (11.5-14.5); Segmented Neutrophils % 60.6 %; White Blood Count 7.4 K/mcL (4.3-11.1)
[2021-09-08] MEDS ORDERED: *HR* FentaNYL (PF) 100 MCG/2 ML VIAL ONE (14:44)
[2021-09-08] MEDS ORDERED: 0.9 % Sodium Chloride 2,000 ML ONE (14:45)
[2021-09-08] MEDS ORDERED: *HR* Heparin 10,000 UNIT/10 ML VIAL ONE (14:45)
[2021-09-08] MEDS ORDERED: Nitroglycerin 1,000 MCG/5 ML VIAL IV ONE (14:45)
[2021-09-08] MEDS ORDERED: *HR* Midazolam HCl 2 MG/2 ML VIAL ONE (14:45)
[2021-09-08] MEDS ORDERED: Heparin 1,000 UNITS/500 mL 500 ML ONE (14:45)
[2021-09-08] MEDS ORDERED: Iopamidol - 370 200 ML INFUS..BTL ONE (14:45)
[2021-09-08] MEDS: Gabapentin 300 MG CAPSULE PO SCH (21:02)
[2021-09-09] MEDS: *HR* Heparin 5,000 UNIT/ML VIAL SQ SCH ×2 (05:12→18:35)
[2021-09-09 06:23] LABS: Calcium 8.9 mg/dL (8.6-10.3); Potassium 3.7 mEq/L (3.5-5.1)
[2021-09-09 06:24] LABS: Basophils # 0.1 K/mcL (0.0-0.2); Eosinophils # 0.7 K/mcL (0.0-0.6); Eosinophils % 7.8 %; Hematocrit 26.8 % (35.3-44.9); Immature Granulocytes % 0.5 % (0-4); Lymphocytes # 1.7 K/mcL (0.6-4.6); Lymphocytes % 18.2 %; Mean Corpuscular HGB Conc 29.9 g/dL (31.6-35.5); Mean Corpuscular Volume 93.7 fL (83.0-100.0); Mean Platelet Volume 9.3 fL (9.4-12.4); Monocytes # 0.8 K/mcL (0.0-1.3); Monocytes % 9.1 %; Neutrophils # 5.8 K/mcL (1.6-8.9); Platelet Count 272 K/mcL (140-400); Red Blood Count 2.86 M/mcL (3.82-4.97); Red Cell Distribution Width 16.3 % (11.5-14.5); Segmented Neutrophils % 63.4 %; White Blood Count 9.1 K/mcL (4.3-11.1)
[2021-09-09] MEDS: Insulin LISPRO 300 UNITS/3 ML VIAL SUBQ SCH ×4 (10:28→20:36)
[2021-09-09] MEDS: Aspirin Enteric Coated 81 MG Tablet PO SCH (10:29)
[2021-09-09] MEDS: carvediloL 6.25 MG TABLET PO SCH ×2 (10:33→18:35)
[2021-09-09] MEDS ORDERED: Furosemide 20 MG TABLET PO ONE (10:39)
[2021-09-09] MEDS ORDERED: Iron Sucrose Complex 200 MG in 0.9 % Sodium Chloride 100 ML IVPB ONE (11:49)
[2021-09-09] MEDS ORDERED: Iopamidol - 370 500 ML MLS IVP ONE (12:11)
[2021-09-09] MEDS: *HR* OxyCODONE Immed Rel 5 MG TABLET PO PRN (15:27)
[2021-09-09] MEDS: Gabapentin 300 MG CAPSULE PO SCH (20:35)
[2021-09-10 04:16] LABS: Estimated Average Glucose 126 mg/dl
[2021-09-10] MEDS: *HR* Heparin 5,000 UNIT/ML VIAL SQ SCH ×2 (06:21→18:26)
[2021-09-10] MEDS: Aspirin Enteric Coated 81 MG Tablet PO SCH (08:59)
[2021-09-10] MEDS: carvediloL 6.25 MG TABLET PO SCH ×2 (09:00→18:26)
[2021-09-10] MEDS: *HR* OxyCODONE Immed Rel 5 MG TABLET PO PRN ×2 (09:00→18:25)
[2021-09-10] MEDS: Insulin LISPRO 300 UNITS/3 ML VIAL SUBQ SCH ×4 (09:01→20:46)
[2021-09-10] MEDS ORDERED: Furosemide 20 MG/2 ML VIAL IVP ONE (15:27)
[2021-09-10] MEDS: Gabapentin 300 MG CAPSULE PO SCH (20:45)
[2021-09-11 05:41] LABS: Basophils # 0.1 K/mcL (0.0-0.2); Basophils % 0.9 %; Hematocrit 25.8 % (35.3-44.9); Hemoglobin 7.9 g/dL (11.5-15.4); Immature Granulocytes % 0.9 % (0-4); Lymphocytes # 2.2 K/mcL (0.6-4.6); Lymphocytes % 23.4 %; Mean Corpuscular HGB Conc 30.6 g/dL (31.6-35.5); Mean Corpuscular Hemoglobin 28.5 pg (28.0-33.3); Mean Corpuscular Volume 93.1 fL (83.0-100.0); Mean Platelet Volume 9.3 fL (9.4-12.4); Monocytes # 0.8 K/mcL (0.0-1.3); Monocytes % 8.2 %; Neutrophils # 5.4 K/mcL (1.6-8.9); Platelet Count 265 K/mcL (140-400); Red Blood Count 2.77 M/mcL (3.82-4.97); Red Cell Distribution Width 16.1 % (11.5-14.5); Segmented Neutrophils % 56.6 %; White Blood Count 9.5 K/mcL (4.3-11.1)
[2021-09-11] MEDS: *HR* Heparin 5,000 UNIT/ML VIAL SQ SCH ×2 (06:48→16:41)
[2021-09-11 06:54] LABS: Alanine Aminotransferase 8 Units/L (7-52); Albumin 3.4 g/dL (3.5-5.7); Albumin/Globulin Ratio 1.1 (1.1-2.2); Alkaline Phosphatase 66 Units/L (34-104); Aspartate Amino Transferase 12 Units/L (13-39); BUN/Creatinine Ratio 20 (6-26); Bilirubin,Total 0.3 mg/dL (0.3-1.0); Blood Urea Nitrogen 21 mg/dL (8-23); Calcium 8.8 mg/dL (8.6-10.3); Carbon Dioxide 24 mEq/L (23-29); Chloride 107 mEq/L (98-107); Chol/HDL Ratio 4.3 (0-4.9); Cholesterol 120 mg/dL (< 200); Globulin 3.1 g/dL (2.4-3.5); Glucose 151 mg/dL (70-105); HDL Cholesterol 28 mg/dL (40-59); LDL Cholesterol,Calculated 50 mg/dL (< 100); Osmolality,Calculated 292 (280-300); Potassium 3.6 mEq/L (3.5-5.1); Sodium 138 mEq/L (136-145); Total Protein 6.5 g/dL (6.4-8.9); Triglycerides 210 mg/dL (< 150); eGFR For African Americans > 60 (> 60); eGFR For Non-African Americans 52 (> 60)
[2021-09-11] MEDS: Insulin LISPRO 300 UNITS/3 ML VIAL SUBQ SCH ×4 (10:12→21:36)
[2021-09-11] MEDS: hydroCHLOROthiazide 25 MG TABLET PO SCH (10:13)
[2021-09-11] MEDS: carvediloL 6.25 MG TABLET PO SCH ×2 (10:13→16:43)
[2021-09-11] MEDS: Aspirin Enteric Coated 81 MG Tablet PO SCH (10:13)
[2021-09-11] MEDS: *HR* OxyCODONE Immed Rel 5 MG TABLET PO PRN ×2 (10:18→18:17)
[2021-09-11] MEDS: Ibuprofen 400 MG TABLET PO PRN (16:43)
[2021-09-11] MEDS: Chlorhexidine Rinse 15 ML MOUTHWASH MM SCH (21:32)
[2021-09-11] MEDS: Gabapentin 300 MG CAPSULE PO SCH (21:32)
[2021-09-12 03:49] LABS: Basophils # 0.1 K/mcL (0.0-0.2); Basophils % 0.8 %; Eosinophils # 0.9 K/mcL (0.0-0.6); Eosinophils % 10.2 %; Hematocrit 23.9 % (35.3-44.9); Hemoglobin 7.3 g/dL (11.5-15.4); Immature Granulocytes % 0.7 % (0-4); Lymphocytes # 2.3 K/mcL (0.6-4.6); Lymphocytes % 26.5 %; Mean Corpuscular HGB Conc 30.5 g/dL (31.6-35.5); Mean Corpuscular Hemoglobin 28.5 pg (28.0-33.3); Mean Corpuscular Volume 93.4 fL (83.0-100.0); Mean Platelet Volume 9.4 fL (9.4-12.4); Monocytes # 0.7 K/mcL (0.0-1.3); Monocytes % 8.6 %; Neutrophils # 4.5 K/mcL (1.6-8.9); Platelet Count 263 K/mcL (140-400); Red Blood Count 2.56 M/mcL (3.82-4.97); Red Cell Distribution Width 16.1 % (11.5-14.5); Segmented Neutrophils % 53.2 %; White Blood Count 8.5 K/mcL (4.3-11.1)
[2021-09-12 03:55] LABS: INR 1.3; Prothrombin Time 14.2 Seconds (9.4-12.1)
[2021-09-12 04:09] LABS: BUN/Creatinine Ratio 17 (6-26); Blood Urea Nitrogen 18 mg/dL (8-23); Calcium 8.4 mg/dL (8.6-10.3); Carbon Dioxide 25 mEq/L (23-29); Chloride 106 mEq/L (98-107); Glucose 207 mg/dL (70-105); Osmolality,Calculated 294 (280-300); Potassium 3.6 mEq/L (3.5-5.1); Sodium 138 mEq/L (136-145); eGFR For African Americans > 60 (> 60); eGFR For Non-African Americans 53 (> 60)
[2021-09-12] MEDS: *HR* Heparin 5,000 UNIT/ML VIAL SQ SCH (04:57)
[2021-09-12] MEDS: Chlorhexidine Rinse 15 ML MOUTHWASH MM SCH ×3 (04:58→22:48)
[2021-09-12] MEDS ORDERED: Papaverine 60 MG/2 ML VIAL IVP ONE (05:46)
[2021-09-12] MEDS ORDERED: Aspirin 81 MG TAB.CHEW PO ONE ×2 (06:00→14:00)
[2021-09-12] MEDS ORDERED: Clindamycin 900 MG/50 ML 900 MG/50 ML IV.SOLN IVPB ONE ×2 (06:00→06:33)
[2021-09-12] MEDS ORDERED: DOBUTamine 1,000 MG/250 ML BAG ONE (06:07)
[2021-09-12] MEDS ORDERED: NiCARdipine 2.5 MG/10 ML Syringe IVPB ONE (06:08)
[2021-09-12] MEDS ORDERED: *HR* Midazolam HCl 5 MG/5 ML VIAL IVP ONE (06:15)
[2021-09-12] MEDS ORDERED: *HR* FentaNYL (PF) 1,000 MCG/20 ML VIAL ONE (06:15)
[2021-09-12] MEDS ORDERED: *HR* Propofol 200 MG/20 ML VIAL IVP ONE (06:15)
[2021-09-12] MEDS ORDERED: *HR* Magnesium Sulfate 1 GM/2 ML VIAL ONE (06:18)
[2021-09-12] MEDS ORDERED: *HR* Rocuronium Bromide 50 MG/5 ML VIAL ONE ×3 (06:18→09:36)
[2021-09-12] MEDS ORDERED: Tranexamic Acid 1,000 MG/10 ML VIAL ONE (06:18)
[2021-09-12] MEDS ORDERED: Famotidine 20 MG/2 ML VIAL ONE (06:18)
[2021-09-12] MEDS ORDERED: Lidocaine 2% Syringe 100 MG/5 ML ONE (06:25)
[2021-09-12] MEDS ORDERED: Vancomycin 1,500 MG/265 ML IV.SOLN IVPB ONE (07:00)
[2021-09-12] MEDS ORDERED: Calcium Gluconate 1gm/50mL 1 GM/50 ML BAG IVPB PRN (07:45)
[2021-09-12] MEDS ORDERED: Albumin Human 5% 12.5 GM/250 ML IV.SOLN IVPB PRN (07:45)
[2021-09-12] MEDS ORDERED: *HR* Dextrose 50 % in Water (Syg) 50 ML SYRINGE IVP PRN (07:45)
[2021-09-12] MEDS ORDERED: Potassium Chloride 40 MEQ/200 ML BAG IVPB PRN (07:45)
[2021-09-12 09:08] LABS: ABG Base Excess -3 mEq/L (-2 to 3); ABG Chloride 107 mEq/L (98-107); ABG Glucose 198 mg/dL (60-95); ABG HCO3 22 mEq/L (21-27); ABG Ionized Calcium 1.11 mmol/L (1.15-1.35); ABG Oxygen Saturation 100 % (95-98); ABG PCO2 34 mmHg (35-45); ABG PH 7.41 pH Units (7.32-7.45); ABG PO2 179 mmHg (85-104); ABG TCO2 23 mEq/L (20-26)
[2021-09-12] MEDS ORDERED: del Nido Cardioplegia Solution PF ONE ×2 (10:00)
[2021-09-12] MEDS ORDERED: Heparin 15,000 UNIT in 0.9 % Sodium Chloride 500 ML IV ONE (10:00)
[2021-09-12] MEDS ORDERED: Buckersberg's Blood Cardioplegia PF ONE (10:00)
[2021-09-12] MEDS ORDERED: Norepinephrine 4 MG in 0.9 % Sodium Chloride 250 ML IVC PRN (10:00)
[2021-09-12 10:23] LABS: ABG Base Excess 0 mEq/L (-2 to 3); ABG Chloride 104 mEq/L (98-107); ABG Glucose 192 mg/dL (60-95); ABG HCO3 24 mEq/L (21-27); ABG Ionized Calcium 0.97 mmol/L (1.15-1.35); ABG Oxygen Saturation 100 % (95-98); ABG PCO2 38 mmHg (35-45); ABG PH 7.42 pH Units (7.32-7.45); ABG PO2 577 mmHg (85-104); ABG TCO2 26 mEq/L (20-26)
[2021-09-12] MEDS ORDERED: Albumin Human 25% 25 GM/100 ML IV.SOLN IVPB ONE (10:44)
[2021-09-12] MEDS ORDERED: Tranexamic Acid 1,000 MG/10 ML VIAL IVP ONE (10:44)
[2021-09-12] MEDS ORDERED: *HR* Phenylephrine 10 MG/ML VIAL IVC ONE (10:44)
[2021-09-12] MEDS ORDERED: *HR* Heparin 10,000 UNIT/10 ML VIAL IR ONE (10:44)
[2021-09-12] MEDS ORDERED: Heparin 1,000 UNITS/500 mL IV.SOLN IR ONE (10:44)
[2021-09-12] MEDS ORDERED: Mannitol 25% vial 12.5 GM/50 ML VIAL IVPB ONE (10:44)
[2021-09-12] MEDS ORDERED: Lidocaine 2% Syringe 100 MG/5 ML IVP ONE (10:44)
[2021-09-12] MEDS ORDERED: *HR* Magnesium Sulfate 2 GM/50 ML PIGGYBACK IVPB ONE (10:44)
[2021-09-12 11:03] LABS: ABG Base Excess 0 mEq/L (-2 to 3); ABG Chloride 105 mEq/L (98-107); ABG Glucose 262 mg/dL (60-95); ABG HCO3 25 mEq/L (21-27); ABG Ionized Calcium 1.05 mmol/L (1.15-1.35); ABG Oxygen Saturation 100 % (95-98); ABG PCO2 39 mmHg (35-45); ABG PH 7.41 pH Units (7.32-7.45); ABG PO2 490 mmHg (85-104); ABG TCO2 26 mEq/L (20-26)
[2021-09-12] MEDS ORDERED: Protamine Sulfate 250 MG/25 ML VIAL IVP ONE (11:18)
[2021-09-12] MEDS ORDERED: Calcium Gluconate 1,000 MG/10 ML VIAL ONE (11:18)
[2021-09-12] MEDS ORDERED: Albumin Human 5% 12.5 GM/250 ML IV.SOLN ONE (11:20)
[2021-09-12 11:37] LABS: ABG Base Excess -3 mEq/L (-2 to 3); ABG Chloride 105 mEq/L (98-107); ABG Glucose 246 mg/dL (60-95); ABG HCO3 23 mEq/L (21-27); ABG Ionized Calcium 1.01 mmol/L (1.15-1.35); ABG Oxygen Saturation 100 % (95-98); ABG PCO2 42 mmHg (35-45); ABG PH 7.34 pH Units (7.32-7.45); ABG PO2 452 mmHg (85-104); ABG TCO2 24 mEq/L (20-26)
[2021-09-12 12:04] LABS: ABG Base Excess -3 mEq/L (-2 to 3); ABG Chloride 105 mEq/L (98-107); ABG Glucose 269 mg/dL (60-95); ABG HCO3 22 mEq/L (21-27); ABG Ionized Calcium 1.27 mmol/L (1.15-1.35); ABG Oxygen Saturation 100 % (95-98); ABG PCO2 43 mmHg (35-45); ABG PH 7.32 pH Units (7.32-7.45); ABG PO2 410 mmHg (85-104); ABG TCO2 24 mEq/L (20-26)
[2021-09-12] MEDS ORDERED: niCARdipine 20 MG/200 ML MLS IVC ONE (12:14)
[2021-09-12 12:18] LABS: ABG Base Excess -5 mEq/L (-2 to 3); ABG Chloride 109 mEq/L (98-107); ABG Glucose 256 mg/dL (60-95); ABG HCO3 20 mEq/L (21-27); ABG Ionized Calcium 1.14 mmol/L (1.15-1.35); ABG Oxygen Saturation 99 % (95-98); ABG PCO2 37 mmHg (35-45); ABG PH 7.34 pH Units (7.32-7.45); ABG PO2 148 mmHg (85-104); ABG TCO2 21 mEq/L (20-26)
[2021-09-12] MEDS ORDERED: Furosemide 40 MG/4 ML VIAL ONE (12:36)
[2021-09-12] MEDS: Insulin Regular, Human 100 UNIT/ML IV PRN ×3 (12:55→15:00)
[2021-09-12] MEDS: DOBUTamine 1,000 MG/250 ML BAG IVC SCH (12:56)
[2021-09-12] MEDS: Norepinephrine 4 MG/254 ML IV.SOLN IVC SCH ×2 (12:56→21:18)
[2021-09-12 13:10] LABS: ABG Base Excess -4 mEq/L (-2 to 3); ABG HCO3 22 mEq/L (21-27); ABG Oxygen Saturation 97 % (95-98); ABG PCO2 42 mmHg (35-45); ABG PH 7.32 pH Units (7.32-7.45); ABG PO2 94 mmHg (85-104); ABG TCO2 23 mEq/L (20-26); Blood Gas Modality ASSIST CONTROL; Blood Gas VT 500 cc
[2021-09-12] MEDS ORDERED: 0.9 % Sodium Chloride 250 ML ONE (13:11)
[2021-09-12 13:23] LABS: Basophils # 0.1 K/mcL (0.0-0.2); Basophils % 0.6 %; Eosinophils # 0.3 K/mcL (0.0-0.6); Eosinophils % 1.5 %; Hematocrit 25.2 % (35.3-44.9); Hemoglobin 7.9 g/dL (11.5-15.4); Immature Granulocytes % 3.2 % (0-4); Lymphocytes # 1.3 K/mcL (0.6-4.6); Lymphocytes % 7.3 %; Mean Corpuscular HGB Conc 31.3 g/dL (31.6-35.5); Mean Corpuscular Hemoglobin 29.2 pg (28.0-33.3); Mean Platelet Volume 9.3 fL (9.4-12.4); Monocytes % 5.7 %; Platelet Count 156 K/mcL (140-400); Red Blood Count 2.71 M/mcL (3.82-4.97); Red Cell Distribution Width 15.9 % (11.5-14.5); Segmented Neutrophils % 81.7 %
[2021-09-12 13:29] LABS: Neutrophils # 14.5 K/mcL (1.6-8.9); White Blood Count 17.7 K/mcL (4.3-11.1)
[2021-09-12 13:34] LABS: INR 1.5; Prothrombin Time 16.5 Seconds (9.4-12.1)
[2021-09-12 13:36] LABS: BUN/Creatinine Ratio 17 (6-26); Blood Urea Nitrogen 16 mg/dL (8-23); Calcium 8.5 mg/dL (8.6-10.3); Carbon Dioxide 24 mEq/L (23-29); Chloride 107 mEq/L (98-107); Glucose 230 mg/dL (70-105); Magnesium 2.9 mg/dL (1.6-2.6); Osmolality,Calculated 298 (280-300); Potassium 3.5 mEq/L (3.5-5.1); Sodium 140 mEq/L (136-145); eGFR For African Americans > 60 (> 60); eGFR For Non-African Americans 57 (> 60)
[2021-09-12 13:37] LABS: Activated Partial Thrombo Time 31.2 Seconds (26.0-36.0)
[2021-09-12] MEDS: Clindamycin 900 MG/50 ML 900 MG/50 ML IV.SOLN IVPB SCH ×2 (14:08→16:24)
[2021-09-12] MEDS: Aspirin Enteric Coated 81 MG Tablet PO SCH (14:08)
[2021-09-12] MEDS: hydroCHLOROthiazide 25 MG TABLET PO SCH (14:09)
[2021-09-12] MEDS: Pantoprazole 40 MG VIAL IVP SCH (14:09)
[2021-09-12] MEDS: niCARdipine 20 MG/200 ML MLS IVC SCH ×3 (14:10→20:33)
[2021-09-12] MEDS: *HR* FentaNYL (PF) 100 MCG/2 ML VIAL IVP PRN ×2 (15:36→21:48)
[2021-09-12 16:03] LABS: ABG Base Excess 1 mEq/L (-2 to 3); ABG HCO3 26 mEq/L (21-27); ABG Oxygen Saturation 97 % (95-98); ABG PCO2 41 mmHg (35-45); ABG PO2 93 mmHg (85-104); ABG TCO2 27 mEq/L (20-26); Blood Gas Modality ASSIST CONTROL; Blood Gas VT 500 cc
[2021-09-12] MEDS: Ondansetron 4 MG/2 ML VIAL IVP PRN (17:59)
[2021-09-12] MEDS: *HR* OxyCODONE/APAP 5/325 TABLET PO PRN ×2 (17:59→22:42)
[2021-09-12 20:12] LABS: ABG Base Excess 2 mEq/L (-2 to 3); ABG HCO3 27 mEq/L (21-27); ABG Oxygen Saturation 92 % (95-98); ABG PCO2 45 mmHg (35-45); ABG PH 7.39 pH Units (7.32-7.45); ABG PO2 66 mmHg (85-104); ABG TCO2 29 mEq/L (20-26); Blood Gas Modality ASSIST CONTROL; Blood Gas VT 500 cc
[2021-09-12 21:08] LABS: ABG Base Excess 2 mEq/L (-2 to 3); ABG HCO3 26 mEq/L (21-27); ABG Oxygen Saturation 94 % (95-98); ABG PCO2 38 mmHg (35-45); ABG PH 7.44 pH Units (7.32-7.45); ABG PO2 69 mmHg (85-104); ABG TCO2 27 mEq/L (20-26); Blood Gas Modality CPAP/PS; Blood Gas Pressure Support 12 cm H2O
[2021-09-12] MEDS: Gabapentin 300 MG CAPSULE PO SCH (21:16)
[2021-09-12] MEDS ORDERED: Chloraseptic Spray 177 ML BOTTLE MM PRN (21:44)
[2021-09-12 22:25] LABS: ABG Base Excess 1 mEq/L (-2 to 3); ABG HCO3 25 mEq/L (21-27); ABG Oxygen Saturation 95 % (95-98); ABG PCO2 38 mmHg (35-45); ABG PH 7.43 pH Units (7.32-7.45); ABG PO2 72 mmHg (85-104); ABG TCO2 26 mEq/L (20-26)
[2021-09-13] MEDS: Clindamycin 900 MG/50 ML 900 MG/50 ML IV.SOLN IVPB SCH ×4 (00:03→23:11)
[2021-09-13] MEDS: niCARdipine 20 MG/200 ML MLS IVC SCH ×7 (00:05→23:09)
[2021-09-13] MEDS: *HR* FentaNYL (PF) 100 MCG/2 ML VIAL IVP PRN ×2 (00:14→02:11)
[2021-09-13] MEDS: Ondansetron 4 MG/2 ML VIAL IVP PRN ×3 (01:02→15:20)
[2021-09-13] MEDS: *HR* OxyCODONE/APAP 5/325 TABLET PO PRN ×5 (03:33→19:36)
[2021-09-13 03:41] LABS: Basophils % 0.2 %; Hematocrit 23.9 % (35.3-44.9); Hemoglobin 7.6 g/dL (11.5-15.4); Immature Granulocytes % 0.7 % (0-4); Lymphocytes % 5.8 %; Mean Corpuscular HGB Conc 31.8 g/dL (31.6-35.5); Mean Corpuscular Hemoglobin 28.9 pg (28.0-33.3); Mean Corpuscular Volume 90.9 fL (83.0-100.0); Mean Platelet Volume 9.6 fL (9.4-12.4); Monocytes # 1.2 K/mcL (0.0-1.3); Monocytes % 7.4 %; Neutrophils # 14.3 K/mcL (1.6-8.9); Platelet Count 198 K/mcL (140-400); Red Blood Count 2.63 M/mcL (3.82-4.97); Segmented Neutrophils % 85.9 %; White Blood Count 16.7 K/mcL (4.3-11.1)
[2021-09-13 03:51] LABS: INR 1.3; Prothrombin Time 14.7 Seconds (9.4-12.1)
[2021-09-13 03:53] LABS: Activated Partial Thrombo Time 28.3 Seconds (26.0-36.0)
[2021-09-13 04:05] LABS: BUN/Creatinine Ratio 18 (6-26); Blood Urea Nitrogen 18 mg/dL (8-23); Calcium 8.8 mg/dL (8.6-10.3); Carbon Dioxide 27 mEq/L (23-29); Chloride 106 mEq/L (98-107); Glucose 134 mg/dL (70-105); Magnesium 2.4 mg/dL (1.6-2.6); Osmolality,Calculated 294 (280-300); Potassium 4.2 mEq/L (3.5-5.1); Sodium 140 mEq/L (136-145); eGFR For African Americans > 60 (> 60); eGFR For Non-African Americans 55 (> 60)
[2021-09-13] MEDS: *HR* Enoxaparin 40 MG/0.4 ML SYRINGE SQ SCH (06:02)
[2021-09-13] MEDS ORDERED: Bumetanide 1 MG/4 ML VIAL IVP ONE (06:38)
[2021-09-13] MEDS: Pantoprazole 40 MG VIAL IVP SCH (07:17)
[2021-09-13] MEDS: Aspirin Enteric Coated 81 MG Tablet PO SCH (07:18)
[2021-09-13] MEDS: Chlorhexidine Rinse 15 ML MOUTHWASH MM SCH ×2 (07:19→19:53)
[2021-09-13] MEDS: carvediloL 6.25 MG TABLET PO SCH ×2 (07:19→16:46)
[2021-09-13] MEDS: hydroCHLOROthiazide 25 MG TABLET PO SCH (07:19)
[2021-09-13] MEDS: DOBUTamine 1,000 MG/250 ML BAG IVC SCH (08:29)
[2021-09-13] MEDS ORDERED: *HR* Dextrose 50 % in Water (Syg) 50 ML SYRINGE IVP PRN (08:52)
[2021-09-13] MEDS ORDERED: Dextrose Gel 15 GM/37.5 ML TUBE PO PRN ×2 (08:52)
[2021-09-13] MEDS ORDERED: D5% in Water 1,000 ML IVC PRN (08:52)
[2021-09-13 10:52] LABS: ABG Base Excess -2 mEq/L (-2 to 3); ABG Chloride 109 mEq/L (98-107); ABG Glucose 170 mg/dL (60-95); ABG HCO3 25 mEq/L (21-27); ABG Ionized Calcium 1.16 mmol/L (1.15-1.35); ABG Oxygen Saturation 83 % (95-98); ABG PCO2 49 mmHg (35-45); ABG PH 7.31 pH Units (7.32-7.45); ABG PO2 52 mmHg (85-104); ABG TCO2 26 mEq/L (20-26)
[2021-09-13] MEDS: Insulin LISPRO 300 UNITS/3 ML VIAL SUBQ SCH ×3 (12:23→19:54)
[2021-09-13] MEDS: Norepinephrine 4 MG/254 ML IV.SOLN IVC SCH (12:26)
[2021-09-13] MEDS: Bumetanide 1 MG/4 ML VIAL IVP SCH (19:45)
[2021-09-13] MEDS: Gabapentin 300 MG CAPSULE PO SCH (21:35)
[2021-09-14] MEDS: *HR* OxyCODONE/APAP 5/325 TABLET PO PRN ×3 (00:04→15:44)
[2021-09-14] MEDS: Norepinephrine 4 MG/254 ML IV.SOLN IVC SCH ×3 (01:32→20:00)
[2021-09-14] MEDS: niCARdipine 20 MG/200 ML MLS IVC SCH ×6 (01:32→22:38)
[2021-09-14 04:24] LABS: Basophils % 0.2 %; Eosinophils # 0.1 K/mcL (0.0-0.6); Eosinophils % 0.3 %; Hematocrit 23.2 % (35.3-44.9); Hemoglobin 7.1 g/dL (11.5-15.4); Immature Granulocytes % 0.7 % (0-4); Lymphocytes # 1.6 K/mcL (0.6-4.6); Lymphocytes % 10.6 %; Mean Corpuscular HGB Conc 30.6 g/dL (31.6-35.5); Mean Corpuscular Hemoglobin 28.6 pg (28.0-33.3); Mean Corpuscular Volume 93.5 fL (83.0-100.0); Monocytes # 1.3 K/mcL (0.0-1.3); Monocytes % 8.6 %; Neutrophils # 12.2 K/mcL (1.6-8.9); Nucleated Red Blood Cells 0.1 /100 WBC (0); Platelet Count 207 K/mcL (140-400); Red Blood Count 2.48 M/mcL (3.82-4.97); Red Cell Distribution Width 16.4 % (11.5-14.5); Segmented Neutrophils % 79.6 %; White Blood Count 15.3 K/mcL (4.3-11.1)
[2021-09-14 04:47] LABS: Calcium 8.3 mg/dL (8.6-10.3); Magnesium 2.2 mg/dL (1.6-2.6); Potassium 3.8 mEq/L (3.5-5.1)
[2021-09-14] MEDS: *HR* Enoxaparin 40 MG/0.4 ML SYRINGE SQ SCH (05:08)
[2021-09-14] MEDS: Chlorhexidine Rinse 15 ML MOUTHWASH MM SCH ×2 (07:15→20:36)
[2021-09-14] MEDS: Bumetanide 1 MG/4 ML VIAL IVP SCH ×2 (07:22→17:19)
[2021-09-14] MEDS: carvediloL 6.25 MG TABLET PO SCH ×2 (07:22→17:19)
[2021-09-14] MEDS: Pantoprazole 40 MG VIAL IVP SCH (07:22)
[2021-09-14] MEDS: Aspirin Enteric Coated 81 MG Tablet PO SCH (07:22)
[2021-09-14] MEDS: hydroCHLOROthiazide 25 MG TABLET PO SCH (07:24)
[2021-09-14] MEDS: Insulin LISPRO 300 UNITS/3 ML VIAL SUBQ SCH ×4 (07:34→20:37)
[2021-09-14] MEDS: DOBUTamine 1,000 MG/250 ML BAG IVC SCH ×2 (07:59→19:33)
[2021-09-14] MEDS: Milrinone Premix 20 MG/100 ML 20 MG/100 ML BAG IVC SCH ×2 (10:26→19:50)
[2021-09-14] MEDS ORDERED: Chlorothiazide Sodium 500 MG VIAL IVP ONE (11:15)
[2021-09-14] MEDS ORDERED: Amiodarone Premix 150 MG/100 ML BAG IVPB ONE (19:34)
[2021-09-14] MEDS: Gabapentin 300 MG CAPSULE PO SCH (20:36)
[2021-09-15] MEDS: niCARdipine 20 MG/200 ML MLS IVC SCH ×5 (01:01→20:01)
[2021-09-15 04:10] LABS: Basophils # 0.1 K/mcL (0.0-0.2); Basophils % 0.5 %; Eosinophils # 0.4 K/mcL (0.0-0.6); Eosinophils % 2.7 %; Hematocrit 21.9 % (35.3-44.9); Hemoglobin 6.9 g/dL (11.5-15.4); Lymphocytes % 14.2 %; Mean Corpuscular HGB Conc 31.5 g/dL (31.6-35.5); Mean Corpuscular Hemoglobin 29.2 pg (28.0-33.3); Mean Corpuscular Volume 92.8 fL (83.0-100.0); Mean Platelet Volume 9.7 fL (9.4-12.4); Monocytes # 1.3 K/mcL (0.0-1.3); Monocytes % 9.3 %; Neutrophils # 10.4 K/mcL (1.6-8.9); Nucleated Red Blood Cells 0.2 /100 WBC (0); Platelet Count 237 K/mcL (140-400); Red Blood Count 2.36 M/mcL (3.82-4.97); Red Cell Distribution Width 16.3 % (11.5-14.5); Segmented Neutrophils % 72.3 %; White Blood Count 14.4 K/mcL (4.3-11.1)
[2021-09-15 04:27] LABS: Calcium 8.1 mg/dL (8.6-10.3); Magnesium 1.9 mg/dL (1.6-2.6); Potassium 3.3 mEq/L (3.5-5.1)
[2021-09-15] MEDS ORDERED: 0.9 % Sodium Chloride 250 ML IVC SCH (04:45)
[2021-09-15] MEDS: *HR* Enoxaparin 40 MG/0.4 ML SYRINGE SQ SCH (05:08)
[2021-09-15] MEDS ORDERED: 0.9 % Sodium Chloride 250 ML ONE (06:30)
[2021-09-15] MEDS: Aspirin Enteric Coated 81 MG Tablet PO SCH (08:26)
[2021-09-15] MEDS: carvediloL 6.25 MG TABLET PO SCH ×2 (08:26→17:08)
[2021-09-15] MEDS: Pantoprazole 40 MG VIAL IVP SCH (08:27)
[2021-09-15] MEDS: Chlorhexidine Rinse 15 ML MOUTHWASH MM SCH ×2 (08:27→19:59)
[2021-09-15] MEDS: *HR* OxyCODONE Immed Rel 5 MG TABLET PO PRN (08:27)
[2021-09-15] MEDS: Bumetanide 1 MG/4 ML VIAL IVP SCH ×2 (08:29→17:08)
[2021-09-15] MEDS: Insulin LISPRO 300 UNITS/3 ML VIAL SUBQ SCH ×4 (08:30→20:10)
[2021-09-15 15:21] LABS: Basophils % 0.3 %; Eosinophils # 0.5 K/mcL (0.0-0.6); Eosinophils % 3.3 %; Hematocrit 31.2 % (35.3-44.9); Lymphocytes % 13.2 %; Mean Corpuscular HGB Conc 31.7 g/dL (31.6-35.5); Mean Corpuscular Hemoglobin 28.9 pg (28.0-33.3); Mean Corpuscular Volume 91.2 fL (83.0-100.0); Mean Platelet Volume 9.3 fL (9.4-12.4); Monocytes # 1.4 K/mcL (0.0-1.3); Monocytes % 9.6 %; Neutrophils # 10.9 K/mcL (1.6-8.9); Nucleated Red Blood Cells 0.5 /100 WBC (0); Platelet Count 251 K/mcL (140-400); Red Blood Count 3.42 M/mcL (3.82-4.97); Red Cell Distribution Width 15.5 % (11.5-14.5); Segmented Neutrophils % 72.6 %
[2021-09-15 15:22] LABS: Hemoglobin 9.9 g/dL (11.5-15.4)
[2021-09-15 15:40] LABS: Calcium 8.7 mg/dL (8.6-10.3); Magnesium 2.3 mg/dL (1.6-2.6); Potassium 4.1 mEq/L (3.5-5.1)
[2021-09-15] MEDS: Norepinephrine 4 MG/254 ML IV.SOLN IVC SCH (19:43)
[2021-09-15] MEDS: Gabapentin 300 MG CAPSULE PO SCH (19:59)
[2021-09-15] MEDS: DOBUTamine 1,000 MG/250 ML BAG IVC SCH (22:10)
[2021-09-16] MEDS: niCARdipine 20 MG/200 ML MLS IVC SCH ×2 (00:03→09:57)
[2021-09-16 04:13] LABS: Basophils # 0.1 K/mcL (0.0-0.2); Basophils % 0.4 %; Eosinophils # 0.7 K/mcL (0.0-0.6); Eosinophils % 5.1 %; Hematocrit 29.6 % (35.3-44.9); Hemoglobin 9.6 g/dL (11.5-15.4); Immature Granulocytes % 0.8 % (0-4); Lymphocytes # 1.6 K/mcL (0.6-4.6); Lymphocytes % 11.8 %; Mean Corpuscular HGB Conc 32.4 g/dL (31.6-35.5); Mean Corpuscular Hemoglobin 29.4 pg (28.0-33.3); Mean Corpuscular Volume 90.8 fL (83.0-100.0); Mean Platelet Volume 9.4 fL (9.4-12.4); Monocytes # 1.2 K/mcL (0.0-1.3); Monocytes % 9.2 %; Neutrophils # 9.8 K/mcL (1.6-8.9); Platelet Count 252 K/mcL (140-400); Red Blood Count 3.26 M/mcL (3.82-4.97); Red Cell Distribution Width 15.5 % (11.5-14.5); Segmented Neutrophils % 72.7 %; White Blood Count 13.4 K/mcL (4.3-11.1)
[2021-09-16 04:35] LABS: BUN/Creatinine Ratio 26 (6-26); Blood Urea Nitrogen 23 mg/dL (8-23); Calcium 8.4 mg/dL (8.6-10.3); Carbon Dioxide 26 mEq/L (23-29); Chloride 100 mEq/L (98-107); Glucose 109 mg/dL (70-105); Osmolality,Calculated 284 (280-300); Potassium 3.6 mEq/L (3.5-5.1); Sodium 135 mEq/L (136-145); eGFR For African Americans > 60 (> 60); eGFR For Non-African Americans > 60 (> 60)
[2021-09-16 04:48] LABS: BUN/Creatinine Ratio 26 (6-26); Blood Urea Nitrogen 23 mg/dL (8-23); Calcium 8.5 mg/dL (8.6-10.3); Carbon Dioxide 25 mEq/L (23-29); Chloride 99 mEq/L (98-107); Glucose 110 mg/dL (70-105); Osmolality,Calculated 282 (280-300); Potassium 3.7 mEq/L (3.5-5.1); Sodium 134 mEq/L (136-145); eGFR For African Americans > 60 (> 60); eGFR For Non-African Americans > 60 (> 60)
[2021-09-16] MEDS: Norepinephrine 4 MG/254 ML IV.SOLN IVC SCH (04:51)
[2021-09-16] MEDS: *HR* Enoxaparin 40 MG/0.4 ML SYRINGE SQ SCH (05:47)
[2021-09-16] MEDS: Potassium Chloride 40 MEQ/200 ML BAG IVPB PRN ×2 (05:47→07:16)
[2021-09-16] MEDS: Insulin LISPRO 300 UNITS/3 ML VIAL SUBQ SCH ×3 (07:51→15:57)
[2021-09-16] MEDS: Chlorhexidine Rinse 15 ML MOUTHWASH MM SCH (07:52)
[2021-09-16] MEDS: Aspirin Enteric Coated 81 MG Tablet PO SCH (07:52)
[2021-09-16] MEDS: carvediloL 6.25 MG TABLET PO SCH ×2 (07:52→17:01)
[2021-09-16] MEDS: DOBUTamine 1,000 MG/250 ML BAG IVC SCH ×2 (09:57→10:07)
[2021-09-16] MEDS ORDERED: Dextrose Gel 15 GM/37.5 ML TUBE PO PRN ×2 (10:02)
[2021-09-16] MEDS ORDERED: *HR* Dextrose 50 % in Water (Syg) 50 ML SYRINGE IVP PRN (10:02)
[2021-09-16] MEDS ORDERED: D5% in Water 1,000 ML IVC PRN (10:02)
[2021-09-16] MEDS ORDERED: Chloraseptic Spray 177 ML BOTTLE MM PRN (10:02)
[2021-09-16] MEDS ORDERED: Ondansetron 4 MG/2 ML VIAL IVP PRN (10:02)
[2021-09-16] MEDS ORDERED: *HR* OxyCODONE/APAP 5/325 TABLET PO PRN (10:02)
[2021-09-16] MEDS ORDERED: Naloxone 0.4 MG/ML INJ IVP PRN (10:02)
[2021-09-16] MEDS ORDERED: Albumin Human 5% 12.5 GM/250 ML IV.SOLN IVPB PRN (10:02)
[2021-09-16] MEDS ORDERED: Ondansetron ODT 4 MG TAB.RAPDIS SL PRN (10:02)
[2021-09-16] MEDS ORDERED: Acetaminophen 325 MG TABLET PO PRN (10:02)
[2021-09-16] MEDS ORDERED: Insulin Regular, Human 100 UNIT/ML IV PRN (10:02)
[2021-09-16] MEDS ORDERED: Gabapentin 300 MG CAPSULE PO SCH (21:00)
[2021-09-16] MEDS ORDERED: Insulin LISPRO 300 UNITS/3 ML VIAL SUBQ SCH (21:00)
[2021-09-17] MEDS ORDERED: *HR* Enoxaparin 40 MG/0.4 ML SYRINGE SQ SCH (06:00)
[2021-09-17 06:19] LABS: Basophils # 0.1 K/mcL (0.0-0.2); Basophils % 0.5 %; Eosinophils # 0.9 K/mcL (0.0-0.6); Eosinophils % 7.5 %; Hematocrit 30.8 % (35.3-44.9); Hemoglobin 9.9 g/dL (11.5-15.4); Immature Granulocytes % 0.9 % (0-4); Lymphocytes # 1.9 K/mcL (0.6-4.6); Lymphocytes % 15.2 %; Mean Corpuscular HGB Conc 32.1 g/dL (31.6-35.5); Mean Corpuscular Hemoglobin 29.5 pg (28.0-33.3); Mean Corpuscular Volume 91.7 fL (83.0-100.0); Mean Platelet Volume 9.2 fL (9.4-12.4); Monocytes # 1.4 K/mcL (0.0-1.3); Monocytes % 10.8 %; Neutrophils # 8.2 K/mcL (1.6-8.9); Platelet Count 299 K/mcL (140-400); Red Blood Count 3.36 M/mcL (3.82-4.97); Red Cell Distribution Width 15.6 % (11.5-14.5); Segmented Neutrophils % 65.1 %; White Blood Count 12.6 K/mcL (4.3-11.1)
[2021-09-17 06:40] LABS: BUN/Creatinine Ratio 26 (6-26); Blood Urea Nitrogen 25 mg/dL (8-23); Calcium 8.3 mg/dL (8.6-10.3); Carbon Dioxide 25 mEq/L (23-29); Chloride 99 mEq/L (98-107); Glucose 118 mg/dL (70-105); Magnesium 2.2 mg/dL (1.6-2.6); Osmolality,Calculated 281 (280-300); Potassium 3.9 mEq/L (3.5-5.1); Sodium 133 mEq/L (136-145); eGFR For African Americans > 60 (> 60); eGFR For Non-African Americans 56 (> 60)
[2021-09-17 07:24] VITALS: TEMP 98
[2021-09-17] MEDS: Insulin LISPRO 300 UNITS/3 ML VIAL SUBQ SCH ×2 (08:01→11:43)
[2021-09-17] MEDS: carvediloL 6.25 MG TABLET PO SCH (08:04)
[2021-09-17] MEDS: DOBUTamine 1,000 MG/250 ML BAG IVC SCH (08:05)
[2021-09-17] MEDS ORDERED: Aspirin Enteric Coated 81 MG Tablet PO SCH (09:00)
[2021-09-17 11:25] VITALS: PULSE 85
[2021-09-17 11:40] VITALS: BP 143/67; O2SAT 96
[2021-09-17 21:48] LABS: Urine Collection Volume NOT PROVIDED mL
[2021-09-18 12:11] LABS: ANA IgG by ELISA NONE DETECTED (None Detected)
[2021-09-19 03:33] LABS: Alpha 2 Globulin (PEP) 0.79 g/dL (0.48-1.05)
[2021-09-19 06:57] LABS: IFE Reflexed IFE Done
[2021-09-19 07:01] LABS: Immunoglobulin A 288 mg/dL (68-408); Immunoglobulin G 1058 mg/dL (768-1632); Immunoglobulin M 119 mg/dL (35-263)
== END 2021-09-17 14:02 | disposition home health service (06) | DRG 216 ==
LOC: EMEROOARM 10:55 → 3NENU 10:55 → SUATTDRO 09-03 18:50 → ICNU 09-12 09:48 → 2NNU 09-16 09:48
PROVIDERS: ADMIT Student in an Organized Health Care Education/Training Program; ATTEND Student in an Organized Health Care Education/Training Program

== ENCOUNTER 2021-10-03 06:36 | Observation (INO) ==
[2021-10-03 07:48] LABS: BUN/Creatinine Ratio 8 (6-26); Blood Urea Nitrogen 8 mg/dL (8-23); Calcium 9.1 mg/dL (8.6-10.3); Carbon Dioxide 24 mEq/L (23-29); Chloride 103 mEq/L (98-107); Glucose 144 mg/dL (70-105); Osmolality,Calculated 289 (280-300); Potassium 3.8 mEq/L (3.5-5.1); Sodium 139 mEq/L (136-145); Troponin I < 0.03 ng/mL (< 0.04); eGFR For African Americans > 60 (> 60); eGFR For Non-African Americans 52 (> 60)
[2021-10-03 07:49] LABS: Basophils # 0.1 K/mcL (0.0-0.2); Basophils % 0.9 %; Eosinophils # 0.6 K/mcL (0.0-0.6); Eosinophils % 7.6 %; Hemoglobin 9.7 g/dL (11.5-15.4); Immature Granulocytes % 0.3 % (0-4); Lymphocytes # 1.5 K/mcL (0.6-4.6); Lymphocytes % 19.7 %; Mean Corpuscular HGB Conc 31.3 g/dL (31.6-35.5); Mean Corpuscular Hemoglobin 28.3 pg (28.0-33.3); Mean Corpuscular Volume 90.4 fL (83.0-100.0); Mean Platelet Volume 8.3 fL (9.4-12.4); Monocytes # 0.6 K/mcL (0.0-1.3); Monocytes % 7.5 %; Platelet Count 344 K/mcL (140-400); Red Blood Count 3.43 M/mcL (3.82-4.97); Red Cell Distribution Width 15.1 % (11.5-14.5); White Blood Count 7.8 K/mcL (4.3-11.1)
[2021-10-03] MEDS ORDERED: Iopamidol - 370 500 ML MLS IVP ONE (07:53)
[2021-10-03 08:01] LABS: Influenza A PCR Negative (Negative); Influenza B PCR Negative (Negative); Resp. Syncytial Virus PCR Negative (Negative)
[2021-10-03 08:17] LABS: SARS-CoV-2 by PCR (In House) Negative (Negative)
[2021-10-03] MEDS ORDERED: *HR* Heparin 5,000 UNIT/ML VIAL IVP ONE (12:40)
[2021-10-03] MEDS ORDERED: *HR* Heparin 5,000 UNIT/ML VIAL IVP PRN ×2 (12:40)
[2021-10-03] MEDS ORDERED: Heparin 25,000UNIT/250ML 1/2NS 25,000 UNIT/250 ML IV.SOLN IVC SCH (12:45)
[2021-10-03] MEDS ORDERED: Ondansetron 4 MG/2 ML VIAL IVP PRN (12:57)
[2021-10-03] MEDS ORDERED: Naloxone 0.4 MG/ML INJ IVP PRN (12:57)
[2021-10-03] MEDS ORDERED: *HR* OxyCODONE Immed Rel 5 MG TABLET PO PRN (12:58)
[2021-10-03] MEDS ORDERED: Dextrose Gel 15 GM/37.5 ML TUBE PO PRN ×2 (13:07)
[2021-10-03] MEDS ORDERED: *HR* Dextrose 50 % in Water (Syg) 50 ML SYRINGE IVP PRN (13:07)
[2021-10-03] MEDS ORDERED: D5% in Water 1,000 ML IVC PRN (13:07)
[2021-10-03 15:14] LABS: Heparin anti-factor XA UFH 0.6 IU/mL (0.30-0.70)
[2021-10-03 15:15] LABS: INR 1.3
[2021-10-03] MEDS: amLODIPine 5 MG TABLET PO SCH (15:15)
[2021-10-03] MEDS: Insulin LISPRO 300 UNITS/3 ML VIAL SUBQ SCH (17:31)
[2021-10-03] MEDS: Furosemide 20 MG TABLET PO SCH (17:33)
[2021-10-03] MEDS: carvediloL 6.25 MG TABLET PO SCH (17:33)
[2021-10-03] MEDS ORDERED: Insulin LISPRO 300 UNITS/3 ML VIAL SUBQ SCH (21:00)
[2021-10-03] MEDS ORDERED: Gabapentin 300 MG CAPSULE PO SCH (21:00)
[2021-10-04 05:18] LABS: Hematocrit 27.9 % (35.3-44.9); Hemoglobin 8.6 g/dL (11.5-15.4); Mean Corpuscular HGB Conc 30.8 g/dL (31.6-35.5); Mean Corpuscular Hemoglobin 28.1 pg (28.0-33.3); Mean Corpuscular Volume 91.2 fL (83.0-100.0); Mean Platelet Volume 8.5 fL (9.4-12.4); Platelet Count 316 K/mcL (140-400); Red Blood Count 3.06 M/mcL (3.82-4.97); Red Cell Distribution Width 15.2 % (11.5-14.5); White Blood Count 8.3 K/mcL (4.3-11.1)
[2021-10-04 05:29] LABS: BUN/Creatinine Ratio 9 (6-26); Blood Urea Nitrogen 9 mg/dL (8-23); Calcium 8.3 mg/dL (8.6-10.3); Carbon Dioxide 26 mEq/L (23-29); Chloride 105 mEq/L (98-107); Glucose 136 mg/dL (70-105); Osmolality,Calculated 289 (280-300); Potassium 3.6 mEq/L (3.5-5.1); Sodium 139 mEq/L (136-145); eGFR For African Americans > 60 (> 60); eGFR For Non-African Americans 52 (> 60)
[2021-10-04 07:36] VITALS: O2SAT 95
[2021-10-04] MEDS: Insulin LISPRO 300 UNITS/3 ML VIAL SUBQ SCH (07:56)
[2021-10-04] MEDS: Furosemide 20 MG TABLET PO SCH (08:05)
[2021-10-04] MEDS: amLODIPine 5 MG TABLET PO SCH (08:05)
[2021-10-04] MEDS: carvediloL 6.25 MG TABLET PO SCH (08:06)
[2021-10-04] MEDS ORDERED: lisinopriL 5 MG TABLET PO SCH (09:00)
[2021-10-04] MEDS ORDERED: Aspirin Enteric Coated 81 MG Tablet PO SCH (09:00)
[2021-10-04 10:48] VITALS: BP 119/65; PULSE 77; TEMP 98.2
== END 2021-10-04 12:46 | disposition home or self-care (01) ==
LOC: 3BNU 06:36 → EMEROOARM 06:36 → SUATTDRO 13:18 → 3BNU 14:17
PROVIDERS: ADMIT Family Medicine; ATTEND Nurse Practitioner